=== PATIENT | female | born 1945 ===

== ENCOUNTER 2024-12-05 09:36 | Inpatient (IN) | payer MEDICARE, SELFPAY ==
--- NOTE | ~2024-12-05 | XR_ITS ---
EXAMINATION: XR abdomen/kub 1V DATE: 12/06/2024 15:05 INDICATION: Left ureteral stone. TECHNIQUE: A supine view of the abdomen on 2 radiographs was obtained. COMPARISON: CT abdomen and pelvis 12/04/2024 FINDINGS: There are no dilated loops of bowel. There is a catheter tip in right atrium. There are stanley nges of aortic valve replacement. There is a left internal ureteral stent in expected position. There is a 5 mm stone in left kidney lower pole. There is a 6 mm stone at left ureteropelvic junction. The re are phleboliths in the pelvis. IMPRESSION: 1. Stones in the left kidney and left ureteropelvic junction with left internal ureteral stent in exp ected position. Reviewed, dictated and finalized at location B. ONAL PRODUCTION MANAGER IMPRESSION: 1. Stones in the left kidney and left ureteropelvic junction with left internal ureteral stent in expected position.
--- NOTE | ~2024-12-05 | XR_ITS ---
CHEST RADIOGRAPH CLINICAL HISTORY: SOB, N/V . COMPARISON: 12/07/2024 (less than 24 hours earlier) TECHNIQUE: Single portable view of the chest. FINDINGS Right internal jugular tunneled central venous power port catheter identified with its tip projecting over the proximal right atrium, in good position. Prosthetic valve in the aortic position. The remainder of the cardiomediastinal silhouette is otherwise unremarkable. Blunting of the left costophrenic sulcus persists, consistent with a small left-sided pleural effusio n. The remainder of the lungs are clear. IMPRESSION: Small left-sided pleural effusion without focal infiltrate, unchanged from prior. Reviewed, dictated and finalized at location A. NCE BROKER IMPRESSION: Small left-sided pleural effusion without focal infiltrate, unchanged from kim coombs
--- NOTE | ~2024-12-05 | XR_ITS ---
Supine and upright views of the abdomen Clinical history: 5 mm left UPJ stone Findings: Bowel gas pattern is nonspecific. No evidence for obstruction or free air. Questionable 5 m m stone at the proximal left ureter. Osseous structures are intact. Impression: Questionable 5 mm proximal left ureteral stone. Reviewed, dictated and finalized at [facility] M. OMER SERVICE ADVOCATE Impression: Questionable 5 mm proximal left ureteral stone.
--- NOTE | ~2024-12-05 | XR_ITS ---
CHEST RADIOGRAPH CLINICAL HISTORY: AFib RVR . COMPARISON: None available TECHNIQUE: Single portable view of the chest. FINDINGS Right internal jugular tunneled central venous power port catheter identified with its tip projecting over the proximal right atrium, in good position. Prosthetic valve in the aortic position. The remainder of the cardiomediastinal silhouette is otherwise unremarkable. Blunting of the left costophrenic sulcus is still a small left-sided pleural effusion. The remainder of the lungs are clear. IMPRESSION: Small left-sided pleural effusion without focal infiltrate. Reviewed, dictated and finalized at location A. Y CATTLE FARM MANAGER
--- NOTE | ~2024-12-05 | XR_ITS ---
Portable chest x-ray Comparison: 12/08/2024 Clinical History: CHF Findings: Right-sided Mediport unchanged. Possible minimal effusions. Lungs are otherwise clear. Ca rdiomediastinal silhouette is stable, with aortic valve replacement. Bones and soft tissues are unrem arkable. Impression: Right-sided Mediport. Possible minimal effusions. Cardiomegaly with aortic valve replacement. Reviewed, dictated and finalized at location . GROWER Impression: Right-sided Mediport. Possible minimal effusions. Cardiomegaly with aortic valve replacement.
--- NOTE | ~2024-12-05 | XR_ITS ---
EXAMINATION: XR retrograde pyelo w/stent LT DATE: 12/06/2024 11:45 INDICATION: Cystoscopy and left ureteral stent placement TECHNIQUE: 45 fluoroscopic images of the abdomen and pelvis were obtained during procedure performed by Dr. Root. Radiologist was not present for the imaging or procedure. The amount of fluoroscopy ti me used during this procedure was 0.4 minutes. COMPARISON: 12/06/2024 FINDINGS: Images demonstrate cannulation and retrograde contrast injection into the left ureter opacifying the normal-appearing left renal pelvis and collecting system. Final images demonstrate placement of a lef t intraureteral stent with loops formed in the left renal pelvis and in the bladder. IMPRESSION: 1. Placement of a left intraureteral stent which is in expected position. See procedure note for furt her detail. Reviewed, dictated and finalized at location A. [facility] [employer] IMPRESSION: 1. Placement of a left intraureteral stent which is in expected position. See p rocedure note for further detail.
--- NOTE | ~2024-12-05 | CT_ITS ---
CT angiogram of the Abdomen and Pelvis with lower extremity runoff: Indication: Numbness, pain, absent pulses in the bilateral lower extremities Technique: 2.5 mm axial scans were obtained through the abdomen and pelvis and lower extremities fol lowing intravenous administration of 100 cc of Omnipaque 350. Dose reduction technique was used on th is scan by utilizing automated exposure control and iterative reconstruction technique. The dose-quan th product (DLP) was 1539.31 mGy-cm. COMPARISON: Outside CT images dated 11/09/2024 Findings: Scans through the lung bases demonstrate partially imaged small to possibly moderate pleur al effusions with mild bibasilar atelectatic change. Small pericardial effusion present. There is stable intrahepatic and extrahepatic biliary dilatation, probably related to prior cholecyst ectomy. There is a new wedge-shaped area of hypodensity at the superior spleen, compatible focal sple bailey infarct (coronal image 36 for example). The pancreas, adrenals and right kidney are within normal limits. Left ureteral stent in place. No significant abnormality of the left kidney identified. No l ymphadenopathy. No bowel obstruction or bowel wall thickening. Status post partial right colectomy. Images through the pelvis were performed. Urinary bladder unremarkable. No adnexal mass seen. Trace p elvic ascites present. Stable atherosclerotic calcification of the aorta and iliac arteries. There is complete occlusion of the distal, infrarenal abdominal aorta, which is new since 11/09/2024. Occlusion also involves the pr oximal common iliac arteries bilaterally. There is reconstitution of the bilateral iliac arteries jus t proximal to the iliac bifurcations. Right external iliac, common femoral, superficial femoral, popl iteal artery are patent. Right popliteal trifurcation is unremarkable. The right posterior tibial art ramin is patent along its length. There is probable multifocal high-grade atherosclerotic disease at th e mid to distal anterior tibial and peroneal arteries, which are poorly visualized. Left external po ac, common femoral, superficial femoral, and popliteal arteries are patent, with some mild to moderat e atherosclerotic disease of the left superficial femoral artery. Left popliteal trifurcation is unre markable. Left posterior tibial artery is patent along its length. There is probable moderate to adva nced atherosclerotic disease of the mid to distal anterior tibial and peroneal arteries in the left c winnie, which are poorly imaged. 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 There is reconstitution of the bilateral common il iac arteries just proximal to the bifurcations. Prior imaging/visualization of the mid to distal anterior tibial and peroneal arteries bilaterally, w hich could be due to relatively poor distal flow versus multifocal atherosclerotic disease. Small splenic infarct, new since prior exam. Small to moderate bilateral pleural effusions. Left ureteral stent. Numerous small pericardial effusion. Reviewed, dictated and finalized at location M. 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 There is reconstitution of the bilateral common iliac arteries just proximal to the b ifurcations. Prior imaging/visualization of the mid to distal anterior tibial and peroneal a rteries bilaterally, which could be due to relatively poor distal flow versus m ultifocal atherosclerotic disease. Small splenic infarct, new since prior exam. Small to moderate bilateral pleural effusions. Left ureteral stent. Numerous small pericardial effusion.
[2024-12-05 14:22] VITALS: BMI 30.1
--- NOTE | 2024-12-05 14:51 | P.CONUR_ITS ---
Assessment and Plan Assessment and plan (1) Hydronephrosis concurrent with and due to calculi of kidney and ureter: Code(s): N13.2 - Hydronephrosis with renal and ureteral calculous obstruction <Brie Nolasco APRN - Last Filed: 12/05/24 15:56> Status: Acute <Brie Nolasco APRN - Last Filed: 12/05/24 15:56> Assessment and Plan: 12/04/24 CT AP shows obstructing left 5mm UPJ stone with mild hydronephrosis Renal function stable, Cr 0.64 <Brie Nolasco APRN - Last Filed: 12/05/24 15:56> (2) UTI (urinary tract infection): Code(s): N39.0 - Urinary tract infection, site not specified <Brie hart APRN - Last Filed: 12/05/24 15:56> Status: Acute <Brie Nolasco APRN - Last Filed: 12/05/24 15:56> Assessment and Plan: Present on admission Received single dose of IV ceftriaxone 12/04/24 at OSH 12/04/24 UA 2+ LE, 3+ blood, >100 WBC, 20-30 RBC UTI risk factors include urinary incontinence, obstructing renal stone, diabetes, debility <Brie Nolasco APRN - Last Filed: 12/05/24 15:56> (3) Urinary incontinence: Code(s): R32 - Unspecified urinary incontinence <Brie Nolasco APRN - Last Filed: 12/05/24 15:56> Status: Acute <Brie Nolasco APRN - Last Filed: 12/05/24 15:56> Assessment and Plan: Chronic, possibly due to progressive myasthenia gravis. Patient not interested in further workup. <Brie Nolasco APRN - Last Filed: 12/05/24 15:56> Assessment and Plan: 79yoF transferred from [facility] 12/05/24 for evaluation and management of obstructing left 5mm UPJ stone with associated mild left hydronephrosis, UTI. Leukocytosis downtrending, WBC 15.1 from 17.4. Renal function stable, Cr 0.64. Afebrile, normotensive. Pain partially controlled (transdermal Fentanyl patch noted). Denies previous history of renal stones. She is s/p open right hemicolectomy 2/2 colocolonic intussusception at [facility] 11/15/24. On chronic anticoagulation with hx TAVR 02/2024 and AFIB. - CT from OSH to be scanned into [facility] P[facility] - Obtain KUB in a.m. to reevaluate stone position. - Continue culture-directed abx for suspected UTI. She received a dose of IV ceftriaxone at OSH 12/04/24. - NPO at midnight for cystoscopy/left ureteral stent placement tomorrow in the OR. Patient aware and agreeable. - We reviewed risk of stent irritation to include hematuria, crampy abdominal pain, bladder spasms, infection. Patient aware her stone will not be treated if there is suspicion for active infection. Stone treatment and subsequent stent management to be completed as an outpatient within the next 3 months after her infection has cleared. - Start daily tamsulosin 0.4mg for trial of passage. Encourage oral fluid intake. - Incontinent of urine at baseline. Will be difficult to strain urine. <Brie Nolasco, VEGETABLE WASHER - Last Filed: 12/05/24 15:56> 79yoF transferred from [facility] 12/05/24 for evaluation and management of obstructing left 5mm UPJ stone with associated mild left hydronephrosis, UTI. Leukocytosis downtrending, WBC 15.1 from 17.4. Renal function stable, Cr 0.64. Afebrile, normotensive. Pain partially controlled (transdermal Fentanyl patch noted). Denies previous history of renal stones. She is s/p partial bowel resection 2/2 intussusception at [facility] 11/22/24 - CT from OSH to be scanned into [facility] - Obtain KUB in a.m. to reevaluate stone position. - Continue culture-directed abx for suspected UTI. She received a dose of IV ceftriaxone at OSH 12/04/24. - NPO at midnight for cystoscopy/left ureteral stent placement tomorrow in the OR. Patient aware and agreeable. - We reviewed possible stent irritation to include hematuria, crampy abdominal pain, bladder spasms, infection. Patient aware her stone will not be treated if there is suspicion for active infection. Stone treatment and subsequent stent management to be completed as an outpatient within the next 3 months after her infection has cleared. - Start daily tamsulosin 0.4mg for trial of passage. Encourage oral fluid intake. - Incontinent of urine at baseline. Will be difficult to strain urine. <Angelina Reese MD - Last Filed: 12/05/24 15:58> Urology Consult Note HPI Date Seen: 12/05/24 <Brie Nolasco APRN - Last Filed: 12/05/24 15:56> 12/05/24 <Angelina Reese MD - Last Filed: 12/05/24 15:58> Requesting Physician: Marybeth Delacruz MD <Brie Nolasco APRN - Last Filed: 12/05/24 15:56> Primary Care Provider: UNKNOWN,DOCTOR <Brie Nolasco APRN - Last Filed: 12/05/24 15:56> Consult Narrative Reason for consult: Obstructing left ureteral stone, UTI <Brie Nolasco APRN - Last Filed: 12/05/24 15:56> Narrative: Kallie Calderon is an 79yoF transferred from [facility] 12/05/24 for evaluation and management of obstructing left 5mm UPJ stone with associated mild left hydronephrosis, UTI. She reports bloody urine for the past 3 days with intermittent left flank pain and subjective fever. Denies abdominal pain, nausea, vomiting. Denies previous history of renal stones. Reports chronic urinary incontinence and frequent UTI, AFIB on Eliquis. Nonsmoker. Patient comfortable on exam, feeling cold and tired, otherwise denies complaints 12/04-12/05/24 records from outside hospital reviewed. Leukocytosis downtrending, WBC 15.1 from 17.4. Renal function stable, Cr 0.64. Afebrile, normotensive. Pain partially controlled (transdermal Fentanyl patch noted for hx chronic back pain). Recently hospitalized at [facility] 11/09/24 - 11/20/24. EPIC records reviewed: She is s/p open right hemicolectomy 2/2 colocolonic intussusception at [facility] 11/15/24. On exam, mid-abdominal surgical incision intact, well-approximated, no s/sx infection. Hx TAVR 02/2024 for severe aortic stenosis. <Brie Nolasco APRN - Last Filed: 12/05/24 15:56> Review of Systems Constitutional: Constitutional: Reports chills, Reports fatigue and Reports lethargy <Brie Nolasco APRN - Last Filed: 12/05/24 15:56> Eyes: Eyes: Reports no additional eye complaints <Brie Nolasco APRN - Last Filed: 12/05/24 15:56> ENT: Reports Normal hearing present <Brie Nolasco APRN - Last Filed: 12/05/24 15:56> Cardiovascular: Cardiovascular: Reports no additional cardiovascular complaints <Brie Nolasco APRN - Last Filed: 12/05/24 15:56> Respiratory: Respiratory: Reports no additional respiratory complaints <Brie Nolasco APRN - Last Filed: 12/05/24 15:56> Gastrointestinal: Gastrointestinal: Denies abdominal pain, Denies nausea and Denies vomiting <Brie Nolasco APRN - Last Filed: 12/05/24 15:56> Comments: s/p partial bowel resection 11/22/2024 <Brie Nolasco APRN - Last Filed: 12/05/24 15:56> Genitourinary: Genitourinary: Reports hematuria (x3 days), Reports flank pain (left) and Reports urinary incontinence (chronic, wears incontinence briefs ) <Brie Nolasco APRN - Last Filed: 12/05/24 15:56> Musculoskeletal: Musculoskeletal: Reports no additional musculoskeletal complaints <Brie Nolasco APRN - Last Filed: 12/05/24 15:56> Neurologic: Reports system reviewed and no additional complaints, except as documented <Brie Nolasco APRN - Last Filed: 12/05/24 15:56> Psychiatric: Psychiatric: Reports no additional psychiatric complaints <Brie Nolasco APRN - Last Filed: 12/05/24 15:56> [facility] Family History Family History: Family History (Updated 12/05/24 @ 14:56 by Brie Nolasco APRN) Other Kidney stones Malignant neoplasm of prostate <Brie Nolasco APRN - Last Filed: 12/05/24 15:56> Social History Social History: Social History (Updated 12/05/24 @ 14:57 by Brie Nolasco APRN) Smoking status: Never smoker Second hand tobacco smoke exposure: Yes Alcohol intake: never Substance use: never Do You Feel Safe in your Home?: Yes Lack of Transportation: No Lack of Food: Never True Current Housing: I Have Housing Concerned About Future Housing: No Difficulty Paying Gas/Electric Bills: No Difficulty Paying for Meds: No Currently Unemployed: No Education: High School Diploma/GED Difficulty w/ Childcare or Family Care: No Spiritual care concerns: No <Brie Nolasco APRN - Last Filed: 12/05/24 15:56> Meds Home Medications and Allergies Home medications: Home Medications ?Medication ?Instructions ?Recorded ?Confirmed ?Type apixaban 5 mg tablet (Eliquis) 5 mg PO BID 12/05/24 12/05/24 History cyclobenzaprine 10 mg tablet 10 mg PO Q8H PRN muscle spasm 12/05/24 12/05/24 History diltiazem HCl 240 mg 480 mg PO DAILY 12/05/24 12/05/24 History capsule,extended release 24 hr diltiazem HCl 300 mg mg PO 12/05/24 History capsule,extended release 24 hr hydrocodone 10 mg-acetaminophen 1 tablet PO Q8H PRN pain 12/05/24 12/05/24 History 325 mg tablet <Brie Nolasco APRN - Last Filed: 12/05/24 15:56> Exam Const: General: comfortable and no acute distress <Brie Nolasco APRN - Last Filed: 12/05/24 15:56> HENMT: Face/Nose/Sinus: Normal nares present <Brie Nolasco APRN - Last Filed: 12/05/24 15:56> Eyes: General: appearance normal, both eyes and all related structures <Brie Nolasco APRN - Last Filed: 12/05/24 15:56> Resp: Effort & Inspection: normal respiratory effort <Brie Nolasco APRN - Last Filed: 12/05/24 15:56> GI: Other: Obese <Brie Nolasco APRN - Last Filed: 12/05/24 15:56> : Other: Incontinence brief <Brie Nolasco APRN - Last Filed: 12/05/24 15:56> Skin: Wounds: wounds noted (Mid-abdominal surgical incision well approximated, pink granulation tissue) <Brie Nolasco APRN - Last Filed: 12/05/24 15:56> Neuro: Speech: normal speech <Brie Nolasco APRN - Last Filed: 12/05/24 15:56> Psych: Speech and movement: Normal speech and movement present <Brie Nolasco APRN - Last Filed: 12/05/24 15:56> Affect: normal affect <Brie Nolasco APRN - Last Filed: 12/05/24 15:56> Attestation Supervising Provider Attestation Patient seen and examined independently. Agree with nurse practitioner note. Plan cystoscopy and left ureteral stent insertion tomorrow <Angelina Reese MD - Last Filed: 12/05/24 15:58>
--- NOTE | 2024-12-05 14:54 | P.HP_ITS ---
H&P: HPI History of Present Illness Date/Time: 12/05/24 14:54 Chief Complaint: Flank Pain Narrative: 79 y/o F presents here with dysuria and hematuria with PMH of anemia, CKD, osteoarthritis, atrial fibrillation, myasthenia gravis, COPD, hypertension, and hyperlipidemia. The patient presents here as a transfer from [facility] for further evaluation of dysuria. She originally presented there on 12/04. Patient reports that she began experiencing dysuria and hematuria since Aug. Reports she finally sought care after she was farther out post-op and felt too much time had passed. No associated fever, chills, body aches, abdominal pain, or constipation. Patient does have a hx of a recent open right hemicolectomy secondary to colocolonic intussusception, performed at [facility] on 11/15/24. Patient has been having intermittent diarrhea for some time, reports no change in the frequency, color, or consistency. She denies hx of kidney stones. Patient also reports left flank pain since Aug. Pain has been intermittent and would worsen with laying down/sitting up. Patient has taken Vicodin and has a fentanyl patch, but only had partially relief. Initial VS at presentation: 36.2? C, RR 18, HR 94, 141/65, and 96% on room air. ED workup showed: WBC 15.1, hemoglobin 8.1 (previously 9.1 on 12/04/2024), glucose 126, creatinine 0.64 and GFR 49, and lactic 5.5. And UA suggestive of UTI. Urine culture with preliminary results of Gram-negative bacilli. CT of the chest/abdomen/pelvis showed mild thickening of the transverse colon with mild edema to the mesentery adjacent to the colon near the anastomosis (may be postoperative given recent surgery) without abscess, 5 mm stone in the left ureteropelvic junction with mild left hydronephrosis, and mild free fluid in the pelvis. Review of Systems Review of Systems: All systems reviewed & are unremarkable except as noted in HPI and below PMFSH Past Medical History Medical History (Updated 12/05/24 @ 17:26 by Savanna Simons, TAMIR) Anemia CKD (chronic kidney disease) Vitamin B deficiency Osteoarthritis Atrial fibrillation Myasthenia gravis COPD (chronic obstructive pulmonary disease) Hypertension Hyperlipidemia Surgical History Surgical History History of breast lump/mass excision History of cholecystectomy H/O aortic valve replacement Family History Family History Other Kidney stones Malignant neoplasm of prostate Social History Social History Smoking status: Never smoker Second hand tobacco smoke exposure: Yes Alcohol intake: never Substance use: never Do You Feel Safe in your Home?: Yes Lack of Transportation: No Lack of Food: Never True Current Housing: I Have Housing Concerned About Future Housing: No Difficulty Paying Gas/Electric Bills: No Difficulty Paying for Meds: No Currently Unemployed: No Education: High School Diploma/GED Difficulty w/ Childcare or Family Care: No Spiritual care concerns: No Meds Home Medications and Allergies Home Medications ?Medication ?Instructions ?Recorded ?Confirmed ?Type apixaban 5 mg tablet (Eliquis) 5 mg PO BID 12/05/24 12/05/24 History cyclobenzaprine 10 mg tablet 10 mg PO Q8H PRN muscle spasm 12/05/24 12/05/24 History diltiazem HCl 240 mg 480 mg PO DAILY 12/05/24 12/05/24 History capsule,extended release 24 hr fentanyl 50 mcg/hr transdermal 1 patch transdermal Q72H pain 12/05/24 12/05/24 History patch hydrocodone 10 mg-acetaminophen 1 tablet PO Q8H PRN pain 12/05/24 12/05/24 History 325 mg tablet losartan 25 mg tablet 25 mg PO DAILY bp 12/05/24 12/05/24 History omeprazole 20 mg capsule,delayed 20 mg PO BID 12/05/24 12/05/24 History release ondansetron 4 mg disintegrating 4 mg translingual Q6H PRN nausea 12/05/24 12/05/24 History tablet and vomiting potassium chloride 10 mEq 10 meq PO BID 12/05/24 12/05/24 History capsule,extended release probenecid 500 mg tablet 500 mg PO Q12H 12/05/24 12/05/24 History pyridostigmine bromide 60 mg tablet 60 mg PO TID 12/05/24 12/05/24 History rosuvastatin 40 mg tablet 40 mg PO DAILY 12/05/24 12/05/24 History spironolactone 25 mg tablet 25 mg PO Q12H 12/05/24 12/05/24 History Allergies Allergy/AdvReac Type Severity Reaction Status Date / Time fish oil Allergy Unknown Verified 12/05/24 19:22 mushroom Allergy Unknown Verified 12/05/24 19:22 penicillin V Allergy Unknown Verified 12/05/24 19:22 famciclovir AdvReac Unknown Verified 12/05/24 19:22 ketorolac AdvReac Unknown Verified 12/05/24 19:22 oxybutynin AdvReac Unknown Verified 12/05/24 19:22 Sulfa (Sulfonamide AdvReac Unknown Verified 12/05/24 19:22 Antibiotics) tetracycline AdvReac Unknown Verified 12/05/24 19:22 topiramate AdvReac Unknown Verified 12/05/24 19:22 sea food Allergy Unknown Uncoded 12/05/24 19:22 Exam Const: General: comfortable and no acute distress Other: , female, mildly ill-appearing HENMT: Face/Nose/Sinus: Normal nares present Mouth: Yes moist mucous membranes Eyes: General: appearance normal, both eyes and all related structures Sclera: sclerae normal Pupils: Equal, round and reactive pupils present EOM: EOMs intact bilaterally Resp: Effort & Inspection: normal respiratory effort Auscultation: clear to auscultation bilaterally Cardio: Rate: regular rate Rhythm: abnormal rhythm Other: S1-S2 present without murmur, rub, ectopy GI: Other: post-operative incision near umbilicus and distally is intact and free of erythema/drainage. diffuse tenderness with palpation. Skin: General skin exam: normal color and no rashes or lesions noted Other: Postoperative incision to abdomen, CDI. Neuro: Speech: normal speech Motor exam (neuro): 5/5 motor strength present throughout Sensory Exam: normal sensation Other: A&O x4 Extrem: General: normal to inspection Psych: Mental Status: mental status grossly normal Affect: normal affect Other: Good insight and judgment, pleasant Assessment and Plan Assessment and plan (1) Sepsis: Qualifiers: Sepsis acute organ dysfunction status: without acute organ dysfunction Sepsis type: sepsis due to unspecified organism Qualified Code(s): A41.9 - Sepsis, unspecified organism Code(s): A41.9 - Sepsis, unspecified organism Status: Acute Assessment and Plan: - meets SIRS criteria: HR, WBC - lactic acid: 5.5 -> 1.5 - repeat lactic, add procalcitonin - given 2 L bolus at outside hospital - suspected source: UTI - started on ceftriaxone on 12/04 - blood cultures drawn on 12/04 at outside hospital - UA suggestive of UTI (2) UTI (urinary tract infection): Qualifiers: Hematuria presence: with hematuria Urinary tract infection type: acute cystitis Qualified Code(s): N30.01 - Acute cystitis with hematuria Code(s): N39.0 - Urinary tract infection, site not specified Status: Acute Assessment and Plan: - UA: Small bilirubin, trace ketones, small leukocytes, TNTC WBC, 20-30 RBC, 1+ bacteria, 0-2 epithelial cells. - UC pending, preliminary results Gram-negative bacilli - no previous micro available for review - started on Ceftriaxone on 12/05 - Eliquis for held at outside hospital due to hematuria, will add SCDs and continue told (3) Hydronephrosis concurrent with and due to calculi of kidney and ureter: Code(s): N13.2 - Hydronephrosis with renal and ureteral calculous obstruction Status: Acute Assessment and Plan: - CT chest/abd/pelvis: 1. Mild thickening of the transverse colon with mild edema in the mesentery adjacent to the colon near the anastomosis. It may be postoperative given recent surgery. No abscess. 2. A 5 mm stone in the left ureteropelvic junction with mild left hydronephrosis 3. Mild free fluid in the pelvis. - Urology consulted, Gaurav DATA REVIEW SPECIALIST. Provided the following recs: NPO at midnight for cystoscopy and left ureteral stent placement tomorrow Continue culture directed ABX, awaiting final result of UC Start Flomax 0.4 mg daily (4) CKD (chronic kidney disease): Qualifiers: Chronic kidney disease stage: unspecified stage Qualified Code(s): N18.9 - Chronic kidney disease, unspecified Code(s): N18.9 - Chronic kidney disease, unspecified Status: Acute Assessment and Plan: - creatinine 0.64 and GFR 49 - trend renal function - trend electrolytes, correct as needed (5) Hypertension: Qualifiers: Hypertension type: primary hypertension Qualified Code(s): I10 - Essential (primary) hypertension Code(s): I10 - Essential (primary) hypertension Status: Acute Assessment and Plan: - chronic, currently 154/71 - continue home medications: losartan 25 mg daily, spironolactone 25 mg b.i.d. - monitor Plan Diet: Diabetic GI Prophylaxis: Not currently indicated DVT Prophylaxis: SCDs, Eliquis on hold Lines: Peripheral Code Status: full code Quality VTE Prophylaxis VTE prophylaxis: mechanical ordered Hospitalist MIPS Advance Care Plan I have confirmed that the patient's Advanced Care Plan is present, code status is documented, or surrogate decision maker is listed in patient medical record.: Yes Medication Reconciliation I have utilized all available resources to obtain, update and review the patients current medications (includes all prescriptions, OTC, herbals, cannabis, and nutritional supplements).: Yes
[2024-12-05 15:04] VITALS: BP 154/71; PULSE 71; RESP 17; TEMP 36.2; O2SAT 98
--- NOTE | 2024-12-05 16:13 | PC.NURSE ---
This patient, Kallie Calderon, was admitted to [facility] Surg Room 329-01. Patient/family oriented to hospital policies and general routines including ID bracelet, bed and alarms, visiting hours, pain management, procedures, bathroom and other care routines, personal items, smoking policy, room service/diet, and visiting hours. Information on how to activate the Rapid Response Team has been discussed. Patient/Family are encouraged to report perceived risks to care and to ask questions if they do not understand what they are told or what they should do.
[2024-12-05 19:49] LABS: Hematocrit 27.1 % (37.0-47.0); Hemoglobin 8.5 g/dL (12.0-15.0); Mean Corpuscular HGB Conc 31.4 g/dl (32-36); Mean Corpuscular Hemoglobin 28.5 pg (26-34); Mean Corpuscular Volume 90.9 fl (80-100); Mean Platelet Volume 9.9 fl (7.4-10.4); Platelet Count Result 258 k/mm3 (150-375); Red Blood Count 2.98 M/mm3 (4.2-5.4); Red Cell Distribution Width 14.9 % (11.5-14.5); White Blood Count 18.3 K/mm3 (4.5-10.0)
[2024-12-05 20:02] LABS: Anion Gap 0 mmol/L (4-12); Blood Urea Nitrogen 10 mg/dL (7-17); Carbon Dioxide 28 mmol/L (22-30); Chloride 102 mmol/L (98-107); Estimated CRCL calculation 54 ml/min; Estimated Glomerular Filt Rate > 60; Glucose 120 mg/dL (65-110); Lactic Acid Reflex 1.5 mmol/L (0.7-2.0); Potassium 4.2 mmol/L (3.4-5.0); Sodium 130 mmol/L (137-145)
[2024-12-05 20:29] VITALS: BP 126/77; PULSE 74; RESP 16; TEMP 37.7; O2SAT 97
[2024-12-05 20:38] LABS: Procalcitonin 0.2 ng/mL
[2024-12-05] MEDS: HYDROcodone/acetaminophen (*CRX) 10-325 MG TABLET 1 TAB PO (20:43)
[2024-12-05] MEDS: PANTOPRAZOLE 40 MG TABLET PO (20:46)
[2024-12-05] MEDS: SPIRONOLACTONE 25 MG TABLET PO (20:55)
[2024-12-06] VITALS (8 sets, daily range): BP systolic 97–167; BP diastolic 47–98; PULSE 72–102; RESP 16–22; TEMP 36.3–37.2; O2SAT 93–100; BMI 30.1
[2024-12-06] MEDS: SPIRONOLACTONE 25 MG TABLET PO ×2 (05:12→17:54)
[2024-12-06 05:43] LABS: Basophils Absolute Auto 0.1 K/mm3 (0.0-0.1); Basophils Percent Auto 0.5 % (0.2-1.2); Eosinophils Absolute Auto 0.1 K/mm3 (0-0.3); Eosinophils Percent Auto 0.3 % (0-4.4); Hematocrit 27.7 % (37.0-47.0); Hemoglobin 8.8 g/dL (12.0-15.0); Immature Granulocyte Absolute 0.22 K/mm3 (0.00-0.031); Immature Granulocyte Percent A 1.1 % (0-0.5); Lymphocytes Absolute Auto 1.84 K/mm3 (0.9-3.2); Lymphocytes Percent Auto 9.4 % (18.3-44.2); Mean Corpuscular HGB Conc 31.8 g/dl (32-36); Mean Corpuscular Hemoglobin 28.9 pg (26-34); Mean Corpuscular Volume 90.8 fl (80-100); Mean Platelet Volume 9.7 fl (7.4-10.4); Monocytes Absolute Auto 1.5 K/mm3 (0.1-0.6); Monocytes Percent Auto 7.5 % (2.6-8.5); Neutrophils Absolute Auto 15.9 K/mm3 (1.3-6.7); Neutrophils Percent Auto 81.2 % (45.5-73.1); Platelet Count Result 269 k/mm3 (150-375); Red Blood Count 3.05 M/mm3 (4.2-5.4); Red Cell Distribution Width 14.9 % (11.5-14.5); White Blood Count 19.6 K/mm3 (4.5-10.0)
[2024-12-06 05:44] LABS: Potassium 3.9 mmol/L (3.4-5.0)
[2024-12-06 05:48] LABS: Alanine Aminotransferase 10 U/L (6-35); Albumin Level 2.1 g/dL (3.5-5.1); Alkaline Phosphatase 151 U/L (38-126); Anion Gap 1 mmol/L (4-12); Aspartate Amino Transferase 23 U/L (14-36); Bilirubin,Total 0.5 mg/dL (0.2-1.3); Blood Urea Nitrogen 10 mg/dL (7-17); Calcium 7.8 mg/dL (8.4-10.2); Carbon Dioxide 28 mmol/L (22-30); Chloride 101 mmol/L (98-107); Estimated CRCL calculation 62 ml/min; Estimated Glomerular Filt Rate > 60; Glucose 131 mg/dL (65-110); Sodium 130 mmol/L (137-145)
--- NOTE | 2024-12-06 06:25 | WPDHPUPDATE1 ---
History and Physical Update Update Date/Time: 12/06/24 06:25 History and Physical has been reviewed, including an updated exam of the patient. There are NO changes in the patient's condition. Risks, benefits, and alternatives have been discussed and questions answered. Patient agrees to proceed with procedure.
[2024-12-06] MEDS: dilTIAZem HCL CD 240 MG CAP.24HR 480 MG PO (09:42)
[2024-12-06] MEDS: POTASSIUM CHLORIDE 10 MEQ ER TABLET PO ×2 (09:43→17:54)
--- NOTE | 2024-12-06 10:40 | SUR.PREOP ---
Per Dr. Lance, anesthesiologist, morris to use accessed port for IVF. If additional access is needed, it will be obtained in the OR.
--- NOTE | 2024-12-06 11:10 | P.PNAN_ITS ---
Anes - Initial Pre Proc Eval Procedure: Operation Date: 12/06/24 14:30 Proposed Procedures p Cystoscopy, Left Stent Placement(Left) - Vern Root MD Date/Time: 12/06/24 11:10 Surgeon: Dk Pre Op Diagnosis: Kidney Stone Patient Data Age: 79 Gender: F Height: 1.6 m Weight: 77.1 kg Last Vital Signs Temp 37.2 C 12/06/24 10:20 Pulse 99 12/06/24 10:20 Resp 18 12/06/24 10:20 BP 167/55 H 12/06/24 10:20 Pulse Ox 97 12/06/24 10:20 O2 Del Method Room Air 12/06/24 10:20 Allergies Allergy/AdvReac Type Severity Reaction Status Date / Time fish oil Allergy Unknown Verified 12/06/24 10:31 mushroom Allergy Unknown Verified 12/06/24 10:31 penicillin V Allergy Unknown Verified 12/06/24 10:31 famciclovir AdvReac Unknown Verified 12/06/24 10:31 ketorolac AdvReac Unknown Verified 12/06/24 10:31 oxybutynin AdvReac Unknown Verified 12/06/24 10:31 Sulfa (Sulfonamide AdvReac Unknown Verified 12/06/24 10:31 Antibiotics) tetracycline AdvReac Unknown Verified 12/06/24 10:31 topiramate AdvReac Unknown Verified 12/06/24 10:31 sea food Allergy Unknown Uncoded 12/06/24 10:31 Home Medications ?Medication ?Instructions ?Recorded ?Confirmed ?Type apixaban 5 mg tablet (Eliquis) 5 mg PO BID 12/05/24 12/05/24 History cyclobenzaprine 10 mg tablet 10 mg PO Q8H PRN muscle spasm 12/05/24 12/05/24 History diltiazem HCl 240 mg 480 mg PO DAILY 12/05/24 12/05/24 History capsule,extended release 24 hr fentanyl 50 mcg/hr transdermal 1 patch transdermal Q72H pain 12/05/24 12/05/24 History patch hydrocodone 10 mg-acetaminophen 1 tablet PO Q8H PRN pain 12/05/24 12/05/24 History 325 mg tablet losartan 25 mg tablet 25 mg PO DAILY bp 12/05/24 12/05/24 History omeprazole 20 mg capsule,delayed 20 mg PO BID 12/05/24 12/05/24 History release ondansetron 4 mg disintegrating 4 mg translingual Q6H PRN nausea 12/05/24 12/05/24 History tablet and vomiting potassium chloride 10 mEq 10 meq PO BID 12/05/24 12/05/24 History capsule,extended release probenecid 500 mg tablet 500 mg PO Q12H 12/05/24 12/05/24 History pyridostigmine bromide 60 mg tablet 60 mg PO TID 12/05/24 12/05/24 History rosuvastatin 40 mg tablet 40 mg PO DAILY 12/05/24 12/05/24 History spironolactone 25 mg tablet 25 mg PO Q12H 12/05/24 12/05/24 History Laboratory Tests 12/05/24 12/06/24 12/06/24 19:41 05:31 05:31 WBC 18.3 H K/mm3 19.6 H K/mm3 (4.5-10.0) (4.5-10.0) RBC 2.98 L M/mm3 3.05 L M/mm3 (4.2-5.4) (4.2-5.4) Hgb 8.5 L g/dL 8.8 L g/dL (12.0-15.0) (12.0-15.0) Hct 27.1 L % 27.7 L % (37.0-47.0) (37.0-47.0) MCV 90.9 fl 90.8 fl (80-100) (80-100) MCH 28.5 pg 28.9 pg (26-34) (26-34) MCHC 31.4 L g/dl 31.8 L g/dl (32-36) (32-36) RDW 14.9 H % 14.9 H % (11.5-14.5) (11.5-14.5) Plt Count 258 k/mm3 269 k/mm3 (150-375) (150-375) MPV 9.9 fl 9.7 fl (7.4-10.4) (7.4-10.4) Immature Gran % (Auto) 1.1 H % (0-0.5) Neut % (Auto) 81.2 H % (45.5-73.1) Lymph % (Auto) 9.4 L % (18.3-44.2) [place] % (Auto) 7.5 % (2.6-8.5) Eos % (Auto) 0.3 % (0-4.4) Baso % (Auto) 0.5 % (0.2-1.2) Lymph # (Auto) 1.84 K/mm3 (0.9-3.2) [place] # (Auto) 1.5 H K/mm3 (0.1-0.6) Eos # (Auto) 0.1 K/mm3 (0-0.3) Baso # (Auto) 0.1 K/mm3 (0.0-0.1) Abs Immat Gran (auto) 0.22 H K/mm3 (0.00-0.031) Absolute Neuts (auto) 15.9 H K/mm3 (1.3-6.7) Absolute Nucleated RBC 0.000 K/mm3 (0.0-0.012) Nucleated RBC % 0.0 % (0.0-0.2) Sodium 130 L mmol/L 130 L mmol/L (137-145) (137-145) Potassium 4.2 mmol/L 4.0 mmol/L 3.9 mmol/L (3.4-5.0) (3.4-5.0) (3.4-5.0) Chloride 102 mmol/L 101 mmol/L (98-107) (98-107) Carbon Dioxide 28 mmol/L 28 mmol/L (22-30) (22-30) Anion Gap 0 L mmol/L 1 L mmol/L (4-12) (4-12) BUN 10 mg/dL 10 mg/dL (7-17) (7-17) Creatinine 0.69 L mg/dL 0.59 L mg/dL (0.7-1.0) (0.7-1.0) Estim Creat Clear Calc 54 ml/min 62 ml/min Estimated GFR > 60 > 60 (59 - ) (59 - ) Glucose 120 H mg/dL 131 H mg/dL (65-110) (65-110) Lactic Acid 1.5 mmol/L (0.7-2.0) Calcium 8.0 L mg/dL 7.8 L mg/dL (8.4-10.2) (8.4-10.2) Total Bilirubin 0.5 mg/dL (0.2-1.3) AST 23 U/L (14-36) ALT 10 U/L (6-35) Alkaline Phosphatase 151 H U/L (38-126) Total Protein 5.0 L g/dL (6.3-8.2) Albumin 2.1 L g/dL (3.5-5.1) Procalcitonin 0.2 ng/mL Patient hx anesthesia problems: none Family hx anesthesia problems: none Results Review: All pre-operative results and documents have been reviewed as part of the pre-operative evaluation. [facility] Past Medical History Medical History (Updated 12/05/24 @ 17:26 by Savanna Simons APRN) Anemia CKD (chronic kidney disease) Vitamin B deficiency Osteoarthritis Atrial fibrillation Myasthenia gravis COPD (chronic obstructive pulmonary disease) Hypertension Hyperlipidemia Surgical History Surgical History History of breast lump/mass excision History of cholecystectomy H/O aortic valve replacement Family History Family History Other Kidney stones Malignant neoplasm of prostate Social History Social History Smoking status: Never smoker Second hand tobacco smoke exposure: Yes Alcohol intake: never Substance use: never Do You Feel Safe in your Home?: Yes Lack of Transportation: No Lack of Food: Never True Current Housing: I Have Housing Concerned About Future Housing: No Difficulty Paying Gas/Electric Bills: No Difficulty Paying for Meds: No Currently Unemployed: No Education: High School Diploma/GED Difficulty w/ Childcare or Family Care: No Spiritual care concerns: No Anes - Eval Final PreProcedure Day of Procedure 12/06/24 11:10 Patient weight: obese Heart: regular rate and rhythm Lungs: clear to auscultation Airway: Mallampati scale class II Neurological: alert and oriented Last oral intake: >/= 8 hours ASA classification: III Emergent: no Anesthetic plan: proceed Anesthesia type and monitoring: general GIVS and standard monitoring Results Review: All pre-operative results and documents have been reviewed as part of the pre- operative evaluation. Informed Consent: The patient's anesthetic plan and its attendant risks and benefits were discussed with the patient/family/POA. Questions were solicited and answers provided to the satisfaction of the patient/family/POA.
--- NOTE | 2024-12-06 11:50 | W.PM.PROC2 ---
Procedure Note - Detailed Date of Procedure 12/06/24 Pre-op Diagnosis Left ureteral stone, UTI Post-op Diagnosis Same Procedure Performed Cystoscopy, left retrograde pyelography, left ureteral stent placement Surgeon Vern Root MD Anesthesia MAC Description of Procedure The patient was brought to the operative suite where she was prepped and draped in a routine sterile fashion while in the dorsal lithotomy position. A 19 F rigid cystoscope was placed in her bladder and the bladder was circumferentially inspected. The bladder neck and urethra were endoscopically normal. The bladder mucosa was without hyperemia. There was no intravesical foreign body or neoplasm. There was a single orthotopic ureteral orifice bilaterally. I advanced .035 glidewire into the left renal pelvis under fluoroscopy. a retrograde pyelogram was obtained on the left over a Sharon catheter to ensure appropriate placement of her ureteral stent. A 4.8F variable length ureteral stent was positioned with the proximal coil in the renal pelvis and the distal coil in the bladder. Scopes and wires were removed after emptying the patient's bladder. Drains Yes Packing No Pathology None sent Complications No immediate complications
[2024-12-06] MEDS: MORPHINE SULFATE (*CRX) 2 MG/ML INJ IV PUSH (14:24)
[2024-12-06] MEDS: TAMSULOSIN HCL 0.4 MG CAPSULE PO (14:25)
[2024-12-06] MEDS: ROSUVASTATIN 20 MG TABLET 40 MG PO (14:26)
[2024-12-06] MEDS: LOSARTAN POTASSIUM 25 MG TABLET PO ×2 (14:26→17:55)
[2024-12-06] MEDS: pyRIDostigmine bromide 60 MG TABLET PO ×3 (14:26→17:54)
[2024-12-06] MEDS: CENTRAL LINE FLUSH 10 ML IV PUSH ×2 (14:26→20:38)
--- NOTE | 2024-12-06 16:09 | PM.IMPN ---
Progress Note: A&P Assessment and Plan (1) Sepsis: Qualifiers: Sepsis type: sepsis due to unspecified organism Sepsis acute organ dysfunction status: without acute organ dysfunction Qualified Code(s): A41.9 - Sepsis, unspecified organism Code(s): A41.9 - Sepsis, unspecified organism Status: Acute Assessment and Plan: - meets SIRS criteria on admission: HR, WBC, Lactic acidosis. - suspected source: UTI - lactic acid: 5.5 -> 1.5 - repeat lactic wnl, procalcitonin 0.2 - given 2 L bolus at outside hospital - blood cultures drawn on 12/04 at outside hospital - UA suggestive of UTI - started on ceftriaxone on 12/04. - Follow cultures as we continue with abx. (2) UTI (urinary tract infection): Qualifiers: Urinary tract infection type: acute cystitis Hematuria presence: with hematuria Qualified Code(s): N30.01 - Acute cystitis with hematuria Code(s): N39.0 - Urinary tract infection, site not specified Status: Acute Assessment and Plan: - UA: Small bilirubin, trace ketones, small leukocytes, TNTC WBC, 20-30 RBC, 1+ bacteria, 0-2 epithelial cells. - UC pending, preliminary results Gram-negative bacilli - no previous micro available for review - started on Ceftriaxone on 12/05 - Eliquis for held at outside hospital due to hematuria, - Ureteral stent placed and Eliquis restarted. (3) Hydronephrosis concurrent with and due to calculi of kidney and ureter: Code(s): N13.2 - Hydronephrosis with renal and ureteral calculous obstruction Status: Acute Assessment and Plan: - CT chest/abd/pelvis: 1. Mild thickening of the transverse colon with mild edema in the mesentery adjacent to the colon near the anastomosis. It may be postoperative given recent surgery. No abscess. 2. A 5 mm stone in the left ureteropelvic junction with mild left hydronephrosis 3. Mild free fluid in the pelvis. - Urology consulted; - s/p Cystoscopy, left retrograde pyelography, left ureteral stent placement. - Started on Flomax 0.4 mg daily. - Further mgt per urologist. (4) CKD (chronic kidney disease): Qualifiers: Chronic kidney disease stage: unspecified stage Qualified Code(s): N18.9 - Chronic kidney disease, unspecified Code(s): N18.9 - Chronic kidney disease, unspecified Status: Acute Assessment and Plan: - Possibly affected by hydronephrosis. - Improving with IVF hydration. - Continue IVF as we monitor closely. - Avoid nephrotoxins. (5) Hypertension: Qualifiers: Hypertension type: primary hypertension Qualified Code(s): I10 - Essential (primary) hypertension Code(s): I10 - Essential (primary) hypertension Status: Acute Assessment and Plan: - chronic, - currently trending normal high. - losartan dose increased 25>>50 mg daily, continue spironolactone 25 mg b.i.d. - monitor and adjust meds as needed. Plan Diet: Heart Healthy GI Prophylaxis: Not currently indicated DVT Prophylaxis: SCDs, Eliquis Lines: Peripheral Code Status: full code Time Spent With Patient Time with patient: 15 - 25 minutes Subjective Date/time seen: 12/06/24 15:10 Patient states she feels alright and has no complaints or distress currently. Interval history: Patient calm on bedrest and looks to be in no acute distress. Review of Systems Review of Systems: All systems reviewed & are unremarkable except as noted in HPI and below Exam Narrative: General: Well appearing, no acute distress. HEENT: Atraumatic, PERRL, EOMI, moist mucosa. NECK: Supple. Lungs: Clear bilaterally. Heart: RRR, no murmurs. Abdomen: Soft, non-tender, non-distended, +ve BS X4 Quadrants. Extremities: Acyanotic, no edema. Skin: Warm and dry. No lesions noted. Neuro: Well oriented. CN II-XII grossly intact. Psych: Pleasant and co-operative. Objective Data Vital Signs Vital Signs: Vital Signs - 24 hr 12/05/24 20:00 12/05/24 20:29 12/06/24 05:17 Temperature 99.8 F H 97.8 F Pulse Rate 74 72 Respiratory Rate 16 18 Blood Pressure 126/77 133/98 H Pulse Oximetry 97 100 Oxygen Delivery Room Air Oxygen Flow Rate 12/06/24 10:20 12/06/24 11:46 12/06/24 12:00 Temperature 98.9 F 97.4 F L Pulse Rate 99 102 H 94 Respiratory Rate 18 22 H 17 Blood Pressure 167/55 H 97/75 L 141/68 H Pulse Oximetry 97 99 99 Oxygen Delivery Room Air Simple Face Mask Simple Face Mask Oxygen Flow Rate 10 10 12/06/24 12:15 12/06/24 12:30 12/06/24 13:52 Temperature 97.8 F Pulse Rate 91 95 77 Respiratory Rate 20 19 18 Blood Pressure 161/64 H 156/62 H 165/78 H Pulse Oximetry 96 93 95 Oxygen Delivery Room Air Room Air Oxygen Flow Rate Intake/Output Intake/Output: Intake & Output 12/03/24 12/04/24 12/05/24 12/06/24 23:59 23:59 23:59 23:59 Intake Total 740 550 Balance 740 550 Meds/Results Medications: Active Medications Generic Name Dose Route Start Last Admin Trade Name Freq PRN Reason Stop Dose Admin Acetaminophen 650 mg 12/05/24 14:50 Acetaminophen 325 Mg Tablet PO Q4H PRN Mild Pain (1-3) or Fever Hydrocodone Bitart/Acetaminophen 1 tab 12/05/24 14:52 12/05/24 20:43 Hydrocodone/Acetaminophen (*Crx) 10-325 Mg Tablet PO 1 tab Q8H PRN Administration Pain Rated 4-6 Bisacodyl 5 mg 12/05/24 14:50 Bisacodyl 5 Mg Tablet Ec PO DAILY PRN Constipation Cyclobenzaprine HCl 10 mg 12/05/24 14:52 Cyclobenzaprine Hcl 10 Mg Tablet PO Q8H PRN muscle spasm Diltiazem HCl 480 mg 12/06/24 09:00 12/06/24 09:42 Diltiazem Hcl Cd 240 Mg Cap.24hr PO 480 mg DAILY DEANDRA Administration Fentanyl 50 mcg 12/05/24 09:00 Fentanyl (*Crx) 50 Mcg Patch TRANSDERM Q72H [facility] Heparin Sodium (Beef Lung) 50 units 12/06/24 09:00 12/06/24 14:26 Heparin Flush 50 Units/5 Ml Syringe IV PUSH 50 units QAM [facility] Administration Heparin Sodium (Beef Lung) 50 units 12/06/24 02:44 Heparin Flush 50 Units/5 Ml Syringe IV PUSH PRN PRN after intermittent infusion Heparin Sodium (Beef Lung) 50 units 12/06/24 02:44 Heparin Flush 50 Units/5 Ml Syringe IV PUSH PRN PRN after blood draws Heparin Sodium (Porcine) 500 units 12/06/24 02:44 Heparin Sodium Lock Flush 500 Units/5 Ml Syringe IV PUSH PRN PRN see comments below Ceftriaxone Sodium 1 gm in 50 mls @ 100 mls/hr 12/05/24 22:40 12/05/24 23:21 Rocephin 1 Gm/Ns 50 Ml IVPB 100 mls/hr HS DEANDRA Administration Losartan Potassium 25 mg 12/06/24 09:00 12/06/24 14:26 Losartan Potassium 25 Mg Tablet PO 25 mg DAILY DEANDRA Administration Miscellaneous Information 1 each 12/05/24 00:01 Nonformulary Drug (Probenecid 500 Mg Tablet) Can Patient Use From Home? XX 01/04/25 00:00 CLARIFY DEANDRA Morphine Sulfate 2 mg 12/05/24 14:50 12/06/24 14:24 Morphine Sulfate (*Crx) 2 Mg/Ml Inj IV PUSH 2 mg Q4H PRN Administration Pain Rated 7-10 Naloxone HCl 0.1 mg 12/05/24 14:50 Naloxone Hcl 0.4 Mg/Ml Vial IV PUSH Q2M PRN Opiate Reversal Non-Formulary Medication 500 mg 12/05/24 17:15 Probenecid PO 01/04/25 17:14 Q12H DEANDRA Ondansetron HCl 4 mg 12/05/24 14:50 Ondansetron Inj 4 Mg/2 Ml Vial IV PUSH Q6H PRN Nausea And Vomiting Pantoprazole Sodium 40 mg 12/05/24 21:00 12/06/24 09:00 Pantoprazole 40 Mg Tablet PO Not Given Q12HR [facility] Potassium Chloride 10 meq 12/06/24 09:00 12/06/24 09:43 Potassium Chloride 10 Meq Er Tablet PO 10 meq BID DEANDRA Administration Pyridostigmine [place] 60 mg 12/06/24 09:00 12/06/24 14:35 Pyridostigmine [place] 60 Mg Tablet PO 60 mg TID DEANDRA Administration Rosuvastatin Calcium 40 mg 12/06/24 09:00 12/06/24 14:26 Rosuvastatin 20 Mg Tablet PO 40 mg DAILY DEANDRA Administration Sodium Chloride 10 ml 12/06/24 06:00 12/06/24 14:26 Central Line Flush IV PUSH 10 ml Q8HR DEANDRA Administration Spironolactone 25 mg 12/05/24 18:00 12/06/24 05:12 Spironolactone 25 Mg Tablet PO 25 mg Q12H DEANDRA Administration Tamsulosin HCl 0.4 mg 12/05/24 15:25 12/06/24 14:25 Tamsulosin Hcl 0.4 Mg Capsule PO 0.4 mg QAM DEANDRA Administration Radiology Results: ITS Impressions Retrograde Pyelogram 12/06/24 12:25 IMPRESSION: 1. Placement of a left intraureteral stent which is in expected position. See procedure note for further detail. Abdomen X-Ray 12/06/24 15:28 IMPRESSION: 1. Stones in the left kidney and left ureteropelvic junction with left internal ureteral stent in expected position. Labs Labs: Laboratory Results - last 24 hr 12/05/24 12/06/24 12/06/24 19:41 05:31 05:31 WBC 18.3 H 19.6 H RBC 2.98 L 3.05 L Hgb 8.5 L 8.8 L Hct 27.1 L 27.7 L MCV 90.9 90.8 MCH 28.5 28.9 MCHC 31.4 L 31.8 L RDW 14.9 H 14.9 H Plt Count 258 269 MPV 9.9 9.7 Immature Gran % (Auto) 1.1 H Neut % (Auto) 81.2 H Lymph % (Auto) 9.4 L [place] % (Auto) 7.5 Eos % (Auto) 0.3 Baso % (Auto) 0.5 Lymph # (Auto) 1.84 [place] # (Auto) 1.5 H Eos # (Auto) 0.1 Baso # (Auto) 0.1 Abs Immat Gran (auto) 0.22 H Absolute Neuts (auto) 15.9 H Absolute Nucleated RBC 0.000 Nucleated RBC % 0.0 Sodium 130 L 130 L Potassium 4.2 4.0 3.9 Chloride 102 101 Carbon Dioxide 28 28 Anion Gap 0 L 1 L BUN 10 10 Creatinine 0.69 L 0.59 L Estim Creat Clear Calc 54 62 Estimated GFR > 60 > 60 Glucose 120 H 131 H Lactic Acid 1.5 Calcium 8.0 L 7.8 L Total Bilirubin 0.5 AST 23 ALT 10 Alkaline Phosphatase 151 H Total Protein 5.0 L Albumin 2.1 L Procalcitonin 0.2 Quality VTE Prophylaxis VTE prophylaxis: mechanical ordered Hospitalist MIPS Advance Care Plan I have confirmed that the patient's Advanced Care Plan is present, code status is documented, or surrogate decision maker is listed in patient medical record.: Yes Medication Reconciliation I have utilized all available resources to obtain, update and review the patients current medications (includes all prescriptions, OTC, herbals, cannabis, and nutritional supplements).: Yes
[2024-12-06] MEDS: PANTOPRAZOLE 40 MG TABLET PO (20:34)
[2024-12-06] MEDS: HYDROcodone/acetaminophen (*CRX) 10-325 MG TABLET 1 TAB PO (20:34)
[2024-12-07] VITALS (11 sets, daily range): BP systolic 113–133; BP diastolic 52–64; PULSE 92–156; RESP 16–18; TEMP 36.6–37; O2SAT 95–100; BMI 31.0
[2024-12-07] MEDS: SPIRONOLACTONE 25 MG TABLET PO ×2 (05:11→17:19)
--- NOTE | 2024-12-07 07:28 | P.PNUR_ITS ---
Progress Note: A&P Assessment and Plan (1) Left ureteral stone: Code(s): N20.1 - Calculus of ureter Status: Acute (2) Left renal stone: Code(s): N20.0 - Calculus of kidney Status: Acute Assessment and Plan: * Patient is tolerating left ureteral stent well. On KUB her stones are calcified. Once she is discharge, and after adequate treatment for her current urinary tract infection, we will schedule left ESWL Subjective Subjective Date/Time Seen: 12/07/24 07:28 Interval history: Tolerating left ureteral stent well Review of Systems Review of Systems: All systems reviewed & are unremarkable except as noted in HPI and below Exam Const: General: no acute distress Resp: Effort & Inspection: normal respiratory effort GI: Inspection: non-distended GI Palp: No abdominal tenderness and No Guarding due to palpation present (GI) Auscultation: normal bowel sounds Objective Data Vital Signs Vital Signs: Vital Signs - 24 hr 12/06/24 10:20 12/06/24 11:46 12/06/24 12:00 Temperature 98.9 F 97.4 F L Pulse Rate 99 102 H 94 Respiratory Rate 18 22 H 17 Blood Pressure 167/55 H 97/75 L 141/68 H Pulse Oximetry 97 99 99 Oxygen Delivery Room Air Simple Face Mask Simple Face Mask Oxygen Flow Rate 10 10 12/06/24 12:15 12/06/24 12:30 12/06/24 13:52 Temperature 97.8 F Pulse Rate 91 95 77 Respiratory Rate 20 19 18 Blood Pressure 161/64 H 156/62 H 165/78 H Pulse Oximetry 96 93 95 Oxygen Delivery Room Air Room Air Oxygen Flow Rate 12/06/24 20:00 12/06/24 20:05 12/07/24 05:16 Temperature 98.8 F 97.9 F Pulse Rate 98 92 Respiratory Rate 16 16 Blood Pressure 137/47 L 118/61 Pulse Oximetry 100 100 Oxygen Delivery Room Air Oxygen Flow Rate Intake/Output Intake/Output: Intake & Output 12/04/24 12/05/24 12/06/24 12/07/24 23:59 23:59 23:59 23:59 Intake Total 790 890 100 Balance 790 890 100 Meds/Results Medications: Active Medications Generic Name Dose Route Start Last Admin Trade Name Freq PRN Reason Stop Dose Admin Acetaminophen 650 mg 12/05/24 14:50 Acetaminophen 325 Mg Tablet PO Q4H PRN Mild Pain (1-3) or Fever Hydrocodone Bitart/Acetaminophen 1 tab 12/05/24 14:52 12/06/24 20:34 Hydrocodone/Acetaminophen (*Crx) 10-325 Mg Tablet PO 1 tab Q8H PRN Administration Pain Rated 4-6 Apixaban 5 mg 12/07/24 09:00 Apixaban 5 Mg Tablet PO BID DEANDRA Bisacodyl 5 mg 12/05/24 14:50 Bisacodyl 5 Mg Tablet Ec PO DAILY PRN Constipation Cyclobenzaprine HCl 10 mg 12/05/24 14:52 Cyclobenzaprine Hcl 10 Mg Tablet PO Q8H PRN muscle spasm Diltiazem HCl 480 mg 12/06/24 09:00 12/06/24 09:42 Diltiazem Hcl Cd 240 Mg Cap.24hr PO 480 mg DAILY DEANDRA Administration Fentanyl 50 mcg 12/05/24 09:00 Fentanyl (*Crx) 50 Mcg Patch TRANSDERM Q72H DEANDRA Heparin Sodium (Beef Lung) 50 units 12/06/24 09:00 12/06/24 14:26 Heparin Flush 50 Units/5 Ml Syringe IV PUSH 50 units QAM DEANDRA Administration Heparin Sodium (Beef Lung) 50 units 12/06/24 02:44 Heparin Flush 50 Units/5 Ml Syringe IV PUSH PRN PRN after intermittent infusion Heparin Sodium (Beef Lung) 50 units 12/06/24 02:44 Heparin Flush 50 Units/5 Ml Syringe IV PUSH PRN PRN after blood draws Heparin Sodium (Porcine) 500 units 12/06/24 02:44 Heparin Sodium Lock Flush 500 Units/5 Ml Syringe IV PUSH PRN PRN see comments below Ceftriaxone Sodium 1 gm in 50 mls @ 100 mls/hr 12/05/24 22:40 12/06/24 20:33 Rocephin 1 Gm/Ns 50 Ml IVPB 100 mls/hr HS DEANDRA Administration Losartan Potassium 50 mg 12/07/24 09:00 Losartan Potassium 50 Mg Tablet PO DAILY [facility] Miscellaneous Information 1 each 12/05/24 00:01 Nonformulary Drug (Probenecid 500 Mg Tablet) Can Patient Use From Home? XX 01/04/25 00:00 CLARIFY [facility] Morphine Sulfate 2 mg 12/05/24 14:50 12/06/24 14:24 Morphine Sulfate (*Crx) 2 Mg/Ml Inj IV PUSH 2 mg Q4H PRN Administration Pain Rated 7-10 Naloxone HCl 0.1 mg 12/05/24 14:50 Naloxone Hcl 0.4 Mg/Ml Vial IV PUSH Q2M PRN Opiate Reversal Non-Formulary Medication 500 mg 12/05/24 17:15 Probenecid PO 01/04/25 17:14 Q12H DEANDRA Ondansetron HCl 4 mg 12/05/24 14:50 Ondansetron Inj 4 Mg/2 Ml Vial IV PUSH Q6H PRN Nausea And Vomiting Pantoprazole Sodium 40 mg 12/05/24 21:00 12/06/24 20:34 Pantoprazole 40 Mg Tablet PO 40 mg Q12HR DEANDRA Administration Potassium Chloride 10 meq 12/06/24 09:00 12/06/24 17:54 Potassium Chloride 10 Meq Er Tablet PO 10 meq BID DEANDRA Administration Pyridostigmine [place] 60 mg 12/06/24 09:00 12/06/24 17:54 Pyridostigmine [place] 60 Mg Tablet PO 60 mg TID DEANDRA Administration Rosuvastatin Calcium 40 mg 12/06/24 09:00 12/06/24 14:26 Rosuvastatin 20 Mg Tablet PO 40 mg DAILY DEANDRA Administration Sodium Chloride 10 ml 12/06/24 06:00 12/06/24 20:38 Central Line Flush IV PUSH 10 ml Q8HR DEANDRA Administration Spironolactone 25 mg 12/05/24 18:00 12/07/24 05:11 Spironolactone 25 Mg Tablet PO 25 mg Q12H DEANDRA Administration Tamsulosin HCl 0.4 mg 12/05/24 15:25 12/06/24 14:25 Tamsulosin Hcl 0.4 Mg Capsule PO 0.4 mg QAM DEANDRA Administration Radiology Results: ITS Impressions Retrograde Pyelogram 12/06/24 12:25 IMPRESSION: 1. Placement of a left intraureteral stent which is in expected position. See procedure note for further detail. Abdomen X-Ray 12/06/24 15:28 IMPRESSION: 1. Stones in the left kidney and left ureteropelvic junction with left internal ureteral stent in expected position.
[2024-12-07] MEDS: POTASSIUM CHLORIDE 10 MEQ ER TABLET PO ×2 (09:59→17:19)
[2024-12-07] MEDS: dilTIAZem HCL CD 240 MG CAP.24HR 480 MG PO (09:59)
[2024-12-07] MEDS: ROSUVASTATIN 20 MG TABLET 40 MG PO (09:59)
[2024-12-07] MEDS: pyRIDostigmine bromide 60 MG TABLET PO ×3 (09:59→17:19)
[2024-12-07] MEDS: APIXABAN 5 MG TABLET PO ×2 (09:59→17:19)
[2024-12-07] MEDS: LOSARTAN POTASSIUM 50 MG TABLET PO (10:00)
[2024-12-07] MEDS: TAMSULOSIN HCL 0.4 MG CAPSULE PO (10:00)
[2024-12-07] MEDS: PANTOPRAZOLE 40 MG TABLET PO ×2 (10:00→20:28)
[2024-12-07 12:14] LABS: Basophils Absolute Auto 0.1 K/mm3 (0.0-0.1); Basophils Percent Auto 0.3 % (0.2-1.2); Hematocrit 26.4 % (37.0-47.0); Hemoglobin 8.4 g/dL (12.0-15.0); Immature Granulocyte Absolute 0.27 K/mm3 (0.00-0.031); Immature Granulocyte Percent A 1.2 % (0-0.5); Lymphocytes Absolute Auto 1.39 K/mm3 (0.9-3.2); Lymphocytes Percent Auto 6.4 % (18.3-44.2); Mean Corpuscular HGB Conc 31.8 g/dl (32-36); Mean Corpuscular Hemoglobin 28.6 pg (26-34); Mean Corpuscular Volume 89.8 fl (80-100); Mean Platelet Volume 9.9 fl (7.4-10.4); Monocytes Absolute Auto 1.5 K/mm3 (0.1-0.6); Neutrophils Absolute Auto 18.5 K/mm3 (1.3-6.7); Neutrophils Percent Auto 85.1 % (45.5-73.1); Platelet Count Result 249 k/mm3 (150-375); Red Blood Count 2.94 M/mm3 (4.2-5.4); White Blood Count 21.7 K/mm3 (4.5-10.0)
[2024-12-07 12:28] LABS: Anion Gap 0 mmol/L (4-12); Blood Urea Nitrogen 10 mg/dL (7-17); Calcium 7.9 mg/dL (8.4-10.2); Carbon Dioxide 28 mmol/L (22-30); Chloride 101 mmol/L (98-107); Estimated CRCL calculation 65 ml/min; Estimated Glomerular Filt Rate > 60; Glucose 143 mg/dL (65-110); Sodium 129 mmol/L (137-145)
[2024-12-07] MEDS: CENTRAL LINE FLUSH 10 ML IV PUSH ×2 (13:44→20:28)
--- NOTE | 2024-12-07 15:16 | ECG_ITS ---
Test Date: 2024-12-07 15:29:45 Measurements Intervals [place] Rate: 109 P: 0 AR: 0 QRS: -16 QRSD: 100 T: 35 QT: 334 QTc: 451 Interpretive Statements ATRIAL FIBRILLATION WITH RAPID VENTRICULAR RESPONSE ABNORMAL RHYTHM ECG No previous ECG available for comparison Electronically Signed On 12-07-2024 23:53:01 CERTIFIED ART THERAPIST by Sushil Navas M.D.
[2024-12-07] MEDS: METOPROLOL TARTRATE INJ 5 MG/5 ML VIAL IV PUSH ×2 (15:27→20:22)
--- NOTE | 2024-12-07 16:04 | PM.IMPN ---
Progress Note: A&P Assessment and Plan (1) Sepsis: Qualifiers: Sepsis type: sepsis due to unspecified organism Sepsis acute organ dysfunction status: without acute organ dysfunction Qualified Code(s): A41.9 - Sepsis, unspecified organism Code(s): A41.9 - Sepsis, unspecified organism Status: Acute Assessment and Plan: - meets SIRS criteria on admission: HR, WBC, Lactic acidosis. - suspected source: UTI - lactic acid: 5.5 -> 1.5 - repeat lactic wnl, procalcitonin 0.2 - given 2 L bolus at outside hospital - blood cultures drawn on 12/04 at outside hospital pending results. - UA suggestive of UTI - started on ceftriaxone on 12/04. - Follow cultures as we continue with IV abx. (2) UTI (urinary tract infection): Qualifiers: Urinary tract infection type: acute cystitis Hematuria presence: with hematuria Qualified Code(s): N30.01 - Acute cystitis with hematuria Code(s): N39.0 - Urinary tract infection, site not specified Status: Acute Assessment and Plan: - UA: Small bilirubin, trace ketones, small leukocytes, TNTC WBC, 20-30 RBC, 1+ bacteria, 0-2 epithelial cells. - UC pending, preliminary results Gram-negative bacilli - no previous micro available for review - started on Ceftriaxone on 12/05 - Eliquis for held at outside hospital due to hematuria, - Ureteral stent placed and Eliquis restarted. (3) Hydronephrosis concurrent with and due to calculi of kidney and ureter: Code(s): N13.2 - Hydronephrosis with renal and ureteral calculous obstruction Status: Acute Assessment and Plan: - CT chest/abd/pelvis: 1. Mild thickening of the transverse colon with mild edema in the mesentery adjacent to the colon near the anastomosis. It may be postoperative given recent surgery. No abscess. 2. A 5 mm stone in the left ureteropelvic junction with mild left hydronephrosis 3. Mild free fluid in the pelvis. - Urology consulted; - s/p Cystoscopy, left retrograde pyelography, left ureteral stent placement. - Started on Flomax 0.4 mg daily. - Further mgt per urologist outpatient. (4) CKD (chronic kidney disease): Qualifiers: Chronic kidney disease stage: unspecified stage Qualified Code(s): N18.9 - Chronic kidney disease, unspecified Code(s): N18.9 - Chronic kidney disease, unspecified Status: Acute Assessment and Plan: - Possibly affected by hydronephrosis. - Continues to improve with IVF hydration. - Continue IVF as we monitor closely. - Avoid nephrotoxins. (5) Hypertension: Qualifiers: Hypertension type: primary hypertension Qualified Code(s): I10 - Essential (primary) hypertension Code(s): I10 - Essential (primary) hypertension Status: Acute Assessment and Plan: - chronic, - BP readings reviewed. - Previously trending normal high. - losartan dose increased 25>>50 mg daily. - currently appears well controlled. - continue spironolactone 25 mg b.i.d. - continue to monitor and adjust meds as needed. Plan Diet: Heart Healthy GI Prophylaxis: Not currently indicated DVT Prophylaxis: SCDs, Eliquis Lines: Peripheral Code Status: full code Time Spent With Patient Time with patient: 15 - 25 minutes Subjective Date/time seen: 12/07/24 11:04 Patient states she feels all right and has been ambulating in the room and doing well. Denies any acute distressful symptoms. Review of Systems Review of Systems: All systems reviewed & are unremarkable except as noted in HPI and below Exam Narrative: General: Well appearing, no acute distress. HEENT: Atraumatic, PERRL, EOMI, moist mucosa. NECK: Supple. Lungs: Clear bilaterally. Heart: RRR, no murmurs. Abdomen: Soft, non-tender, non-distended, +ve BS X4 Quadrants. Extremities: Acyanotic, no edema. Skin: Warm and dry. No lesions noted. Neuro: Well oriented. CN II-XII grossly intact. Psych: Pleasant and co-operative. Objective Data Vital Signs Vital Signs: Vital Signs - 24 hr 12/06/24 20:00 12/06/24 20:05 12/07/24 05:16 Temperature 98.8 F 97.9 F Pulse Rate 98 92 Respiratory Rate 16 16 Blood Pressure 137/47 L 118/61 Pulse Oximetry 100 100 Oxygen Delivery Room Air 12/07/24 14:00 12/07/24 15:27 Temperature 98.6 F Pulse Rate 156 H 154 H Respiratory Rate 18 Blood Pressure 115/52 L Pulse Oximetry 95 Oxygen Delivery Intake/Output Intake/Output: Intake & Output 12/04/24 12/05/24 12/06/24 12/07/24 23:59 23:59 23:59 23:59 Intake Total 790 890 580 Balance 790 890 580 Meds/Results Medications: Active Medications Generic Name Dose Route Start Last Admin Trade Name Freq PRN Reason Stop Dose Admin Acetaminophen 650 mg 12/05/24 14:50 Acetaminophen 325 Mg Tablet PO Q4H PRN Mild Pain (1-3) or Fever Hydrocodone Bitart/Acetaminophen 1 tab 12/05/24 14:52 12/06/24 20:34 Hydrocodone/Acetaminophen (*Crx) 10-325 Mg Tablet PO 1 tab Q8H PRN Administration Pain Rated 4-6 Apixaban 5 mg 12/07/24 09:00 12/07/24 09:59 Apixaban 5 Mg Tablet PO 5 mg BID DEANDRA Administration Bisacodyl 5 mg 12/05/24 14:50 Bisacodyl 5 Mg Tablet Ec PO DAILY PRN Constipation Cyclobenzaprine HCl 10 mg 12/05/24 14:52 Cyclobenzaprine Hcl 10 Mg Tablet PO Q8H PRN muscle spasm Diltiazem HCl 480 mg 12/06/24 09:00 12/07/24 09:59 Diltiazem Hcl Cd 240 Mg Cap.24hr PO 480 mg DAILY DEANDRA Administration Fentanyl 50 mcg 12/05/24 09:00 12/07/24 09:52 Fentanyl (*Crx) 50 Mcg Patch TRANSDERM Not Given Q72H DEANDRA Heparin Sodium (Beef Lung) 50 units 12/06/24 09:00 12/07/24 10:00 Heparin Flush 50 Units/5 Ml Syringe IV PUSH 50 units QAM DEANDRA Administration Heparin Sodium (Beef Lung) 50 units 12/06/24 02:44 Heparin Flush 50 Units/5 Ml Syringe IV PUSH PRN PRN after intermittent infusion Heparin Sodium (Beef Lung) 50 units 12/06/24 02:44 Heparin Flush 50 Units/5 Ml Syringe IV PUSH PRN PRN after blood draws Heparin Sodium (Porcine) 500 units 12/06/24 02:44 Heparin Sodium Lock Flush 500 Units/5 Ml Syringe IV PUSH PRN PRN see comments below Ceftriaxone Sodium 1 gm in 50 mls @ 100 mls/hr 12/05/24 22:40 12/06/24 20:33 Rocephin 1 Gm/Ns 50 Ml IVPB 100 mls/hr HS DEANDRA Administration Losartan Potassium 50 mg 12/07/24 09:00 12/07/24 10:00 Losartan Potassium 50 Mg Tablet PO 50 mg DAILY DEANDRA Administration Miscellaneous Information 1 each 12/05/24 00:01 Nonformulary Drug (Probenecid 500 Mg Tablet) Can Patient Use From Home? XX 01/04/25 00:00 CLARIFY DEANDRA Morphine Sulfate 2 mg 12/05/24 14:50 12/06/24 14:24 Morphine Sulfate (*Crx) 2 Mg/Ml Inj IV PUSH 2 mg Q4H PRN Administration Pain Rated 7-10 Naloxone HCl 0.1 mg 12/05/24 14:50 Naloxone Hcl 0.4 Mg/Ml Vial IV PUSH Q2M PRN Opiate Reversal Non-Formulary Medication 500 mg 12/05/24 17:15 Probenecid PO 01/04/25 17:14 Q12H DEANDRA Ondansetron HCl 4 mg 12/05/24 14:50 Ondansetron Inj 4 Mg/2 Ml Vial IV PUSH Q6H PRN Nausea And Vomiting Pantoprazole Sodium 40 mg 12/05/24 21:00 12/07/24 10:00 Pantoprazole 40 Mg Tablet PO 40 mg Q12HR DEANDRA Administration Potassium Chloride 10 meq 12/06/24 09:00 12/07/24 09:59 Potassium Chloride 10 Meq Er Tablet PO 10 meq BID DEANDRA Administration Pyridostigmine [place] 60 mg 12/06/24 09:00 12/07/24 13:46 Pyridostigmine [place] 60 Mg Tablet PO 60 mg TID DEANDRA Administration Rosuvastatin Calcium 40 mg 12/06/24 09:00 12/07/24 09:59 Rosuvastatin 20 Mg Tablet PO 40 mg DAILY DEANDRA Administration Sodium Chloride 10 ml 12/06/24 06:00 12/07/24 13:44 Central Line Flush IV PUSH 10 ml Q8HR DEANDRA Administration Spironolactone 25 mg 12/05/24 18:00 12/07/24 05:11 Spironolactone 25 Mg Tablet PO 25 mg Q12H DEANDRA Administration Tamsulosin HCl 0.4 mg 12/05/24 15:25 12/07/24 10:00 Tamsulosin Hcl 0.4 Mg Capsule PO 0.4 mg QAM DEANDRA Administration Radiology Results: ITS Impressions Retrograde Pyelogram 12/06/24 12:25 IMPRESSION: 1. Placement of a left intraureteral stent which is in expected position. See procedure note for further detail. Abdomen X-Ray 12/06/24 15:28 IMPRESSION: 1. Stones in the left kidney and left ureteropelvic junction with left internal ureteral stent in expected position. Labs Labs: Laboratory Results - last 24 hr 12/07/24 12:08 WBC 21.7 H RBC 2.94 L Hgb 8.4 L Hct 26.4 L MCV 89.8 MCH 28.6 MCHC 31.8 L RDW 15.0 H Plt Count 249 MPV 9.9 Immature Gran % (Auto) 1.2 H Neut % (Auto) 85.1 H Lymph % (Auto) 6.4 L [place] % (Auto) 7.0 Eos % (Auto) 0.0 Baso % (Auto) 0.3 Lymph # (Auto) 1.39 [place] # (Auto) 1.5 H Eos # (Auto) 0.0 Baso # (Auto) 0.1 Abs Immat Gran (auto) 0.27 H Absolute Neuts (auto) 18.5 H Absolute Nucleated RBC 0.000 Nucleated RBC % 0.0 Sodium 129 L Potassium 4.0 Chloride 101 Carbon Dioxide 28 Anion Gap 0 L BUN 10 Creatinine 0.56 L Estim Creat Clear Calc 65 Estimated GFR > 60 Glucose 143 H Calcium 7.9 L Quality VTE Prophylaxis VTE prophylaxis: mechanical ordered Hospitalist MIPS Advance Care Plan I have confirmed that the patient's Advanced Care Plan is present, code status is documented, or surrogate decision maker is listed in patient medical record.: Yes Medication Reconciliation I have utilized all available resources to obtain, update and review the patients current medications (includes all prescriptions, OTC, herbals, cannabis, and nutritional supplements).: Yes
[2024-12-07] MEDS: SODIUM CHLORIDE 0.9% IV 1,000 ML 100 ML IV CONT (17:19)
[2024-12-07] MEDS: HYDROcodone/acetaminophen (*CRX) 10-325 MG TABLET 1 TAB PO (17:34)
[2024-12-08] VITALS (17 sets, daily range): BP systolic 108–145; BP diastolic 40–93; PULSE 74–123; RESP 18–22; TEMP 36.6–37.7; O2SAT 97–100
[2024-12-08] MEDS: SODIUM CHLORIDE 0.9% IV 1,000 ML 100 ML IV CONT (06:15)
[2024-12-08] MEDS: SPIRONOLACTONE 25 MG TABLET PO ×2 (06:16→17:19)
[2024-12-08] MEDS: CENTRAL LINE FLUSH 10 ML IV PUSH ×3 (06:16→21:52)
[2024-12-08 06:29] LABS: Basophils Absolute Auto 0.1 K/mm3 (0.0-0.1); Basophils Percent Auto 0.4 % (0.2-1.2); Eosinophils Percent Auto 0.1 % (0-4.4); Hematocrit 24.8 % (37.0-47.0); Hemoglobin 7.8 g/dL (12.0-15.0); Immature Granulocyte Absolute 0.18 K/mm3 (0.00-0.031); Immature Granulocyte Percent A 0.9 % (0-0.5); Lymphocytes Absolute Auto 1.15 K/mm3 (0.9-3.2); Lymphocytes Percent Auto 5.4 % (18.3-44.2); Mean Corpuscular HGB Conc 31.5 g/dl (32-36); Mean Corpuscular Hemoglobin 28.4 pg (26-34); Mean Corpuscular Volume 90.2 fl (80-100); Mean Platelet Volume 9.6 fl (7.4-10.4); Monocytes Absolute Auto 1.5 K/mm3 (0.1-0.6); Monocytes Percent Auto 7.1 % (2.6-8.5); Neutrophils Absolute Auto 18.2 K/mm3 (1.3-6.7); Neutrophils Percent Auto 86.1 % (45.5-73.1); Platelet Count Result 234 k/mm3 (150-375); Red Blood Count 2.75 M/mm3 (4.2-5.4); White Blood Count 21.1 K/mm3 (4.5-10.0)
[2024-12-08 06:55] LABS: Anion Gap 1 mmol/L (4-12); Blood Urea Nitrogen 10 mg/dL (7-17); Calcium 7.6 mg/dL (8.4-10.2); Carbon Dioxide 27 mmol/L (22-30); Chloride 103 mmol/L (98-107); Estimated CRCL calculation 68 ml/min; Estimated Glomerular Filt Rate > 60; Glucose 128 mg/dL (65-110); Potassium 3.9 mmol/L (3.4-5.0); Sodium 131 mmol/L (137-145)
[2024-12-08] MEDS: TAMSULOSIN HCL 0.4 MG CAPSULE PO (08:48)
[2024-12-08] MEDS: APIXABAN 5 MG TABLET PO ×2 (08:48→17:19)
[2024-12-08] MEDS: PANTOPRAZOLE 40 MG TABLET PO ×2 (08:48→21:52)
[2024-12-08] MEDS: POTASSIUM CHLORIDE 10 MEQ ER TABLET PO ×2 (08:48→17:19)
[2024-12-08] MEDS: ROSUVASTATIN 20 MG TABLET 40 MG PO (08:48)
[2024-12-08] MEDS: pyRIDostigmine bromide 60 MG TABLET PO ×3 (08:48→17:19)
[2024-12-08] MEDS: HYDROcodone/acetaminophen (*CRX) 10-325 MG TABLET 1 TAB PO (08:48)
[2024-12-08] MEDS: dilTIAZem HCL CD 240 MG CAP.24HR 480 MG PO (08:48)
[2024-12-08] MEDS: LOSARTAN POTASSIUM 50 MG TABLET PO (08:48)
--- NOTE | 2024-12-08 10:03 | PM.CNCAR ---
Assessment and Plan Assessment and plan (1) Atrial fibrillation with rapid ventricular response: Code(s): I48.91 - Unspecified atrial fibrillation Status: Acute (2) Hypertension: Qualifiers: Hypertension type: primary hypertension Qualified Code(s): I10 - Essential (primary) hypertension Code(s): I10 - Essential (primary) hypertension Status: Acute (3) Sepsis: Qualifiers: Sepsis type: sepsis due to unspecified organism Sepsis acute organ dysfunction status: without acute organ dysfunction Qualified Code(s): A41.9 - Sepsis, unspecified organism Code(s): A41.9 - Sepsis, unspecified organism Status: Acute (4) UTI (urinary tract infection): Qualifiers: Urinary tract infection type: acute cystitis Hematuria presence: with hematuria Qualified Code(s): N30.01 - Acute cystitis with hematuria Code(s): N39.0 - Urinary tract infection, site not specified Status: Acute (5) CKD (chronic kidney disease): Qualifiers: Chronic kidney disease stage: unspecified stage Qualified Code(s): N18.9 - Chronic kidney disease, unspecified Code(s): N18.9 - Chronic kidney disease, unspecified Status: Acute (6) Hydronephrosis concurrent with and due to calculi of kidney and ureter: Code(s): N13.2 - Hydronephrosis with renal and ureteral calculous obstruction Status: Acute Plan Assessment: AFib with RVR Hypertension Hyperlipidemia Sepsis secondary to UTI UTI on ceftriaxone Left ureteropelvic junction renal stone cystoscopy, left retrograde pyelography, and left ureteral stent placement by Urology Hydronephrosis Hematuria Plan: Patient has been getting IV metoprolol pushes for RVR. Recommend starting metoprolol 25 mg p.o. b.i.d. for rate control. Hold metoprolol for heart rate less than 50 and/or SBP less than 90 Continue diltiazem 480 mg p.o. daily. This is her home medication Continue apixaban for anticoagulation if okay per Urology given recent hematuria Continue statin Continue spironolactone Continue losartan Check and replace electrolytes to keep potassium more than 4 and magnesium more than 2 Management noncardiac medical problems per primary team History of Present Illness History of Present Illness Consult date/time: 12/08/24 10:03 Reason For Visit: Kidney Stone Narrative: 79-year-old female with hypertension, hyperlipidemia, atrial fibrillation on chronic anticoagulation, COPD, myasthenia gravis, osteoarthritis, anemia, CKD, renal stone, recent hospitalization and bowel surgery for intussusception is admitted with sepsis secondary to UTI, renal stone. CT showed a 5 mm stone in the left ureteropelvic junction with mild left hydronephrosis. She started on ceftriaxone for UTI. Urology was consulted and performed cystoscopy, left retrograde pyelography, and left ureteral stent placement. She was noted to have RVR and Cardiology is consulted for management of atrial fibrillation with RVR. EKG showed AFib with RVR with rate of 109. Patient reports off and on palpitations lasting for a few seconds. No chest pain, lightheadedness, dizziness, leg swelling, recent weight gain, presyncope, syncope. She wants to go home and is frustrated with multiple weeks of hospitalization in the past month. Review of Systems Review of Systems: A complete review of systems was performed and negative other than those mentioned in HPI [facility] Past Medical History Medical History (Updated 12/08/24 @ 10:14 by Nkechi Velasquez MD) Anemia CKD (chronic kidney disease) Vitamin B deficiency Osteoarthritis Atrial fibrillation Myasthenia gravis COPD (chronic obstructive pulmonary disease) Hypertension Hyperlipidemia Surgical History Surgical History History of breast lump/mass excision History of cholecystectomy H/O aortic valve replacement Family History Family History Other Kidney stones Malignant neoplasm of prostate Social History Social History Smoking status: Never smoker Second hand tobacco smoke exposure: Yes Alcohol intake: never Substance use: never Do You Feel Safe in your Home?: Yes Lack of Transportation: No Lack of Food: Never True Current Housing: I Have Housing Concerned About Future Housing: No Difficulty Paying Gas/Electric Bills: No Difficulty Paying for Meds: No Currently Unemployed: No Education: High School Diploma/GED Difficulty w/ Childcare or Family Care: No Spiritual care concerns: No Meds Home Medications and Allergies Home Medications ?Medication ?Instructions ?Recorded ?Confirmed ?Type apixaban 5 mg tablet (Eliquis) 5 mg PO BID 12/05/24 12/05/24 History cyclobenzaprine 10 mg tablet 10 mg PO Q8H PRN muscle spasm 12/05/24 12/05/24 History diltiazem HCl 240 mg 480 mg PO DAILY 12/05/24 12/05/24 History capsule,extended release 24 hr fentanyl 50 mcg/hr transdermal 1 patch transdermal Q72H pain 12/05/24 12/05/24 History patch hydrocodone 10 mg-acetaminophen 1 tablet PO Q8H PRN pain 12/05/24 12/05/24 History 325 mg tablet losartan 25 mg tablet 25 mg PO DAILY bp 12/05/24 12/05/24 History omeprazole 20 mg capsule,delayed 20 mg PO BID 12/05/24 12/05/24 History release ondansetron 4 mg disintegrating 4 mg translingual Q6H PRN nausea 12/05/24 12/05/24 History tablet and vomiting potassium chloride 10 mEq 10 meq PO BID 12/05/24 12/05/24 History capsule,extended release probenecid 500 mg tablet 500 mg PO Q12H 12/05/24 12/05/24 History pyridostigmine bromide 60 mg tablet 60 mg PO TID 12/05/24 12/05/24 History rosuvastatin 40 mg tablet 40 mg PO DAILY 12/05/24 12/05/24 History spironolactone 25 mg tablet 25 mg PO Q12H 12/05/24 12/05/24 History Allergies Allergy/AdvReac Type Severity Reaction Status Date / Time fish oil Allergy Unknown Verified 12/06/24 10:31 mushroom Allergy Unknown Verified 12/06/24 10:31 penicillin V Allergy Unknown Verified 12/06/24 10:31 famciclovir AdvReac Unknown Verified 12/06/24 10:31 ketorolac AdvReac Unknown Verified 12/06/24 10:31 oxybutynin AdvReac Unknown Verified 12/06/24 10:31 Sulfa (Sulfonamide AdvReac Unknown Verified 12/06/24 10:31 Antibiotics) tetracycline AdvReac Unknown Verified 12/06/24 10:31 topiramate AdvReac Unknown Verified 12/06/24 10:31 sea food Allergy Unknown Uncoded 12/06/24 10:31 Vital Signs Vital Signs - 24 hr 12/07/24 14:00 12/07/24 15:27 12/07/24 17:17 Temperature 37.0 C Pulse Rate 156 H 154 H 145 H Respiratory Rate 18 Blood Pressure 115/52 L Pulse Oximetry 95 99 Oxygen Delivery 12/07/24 20:00 12/07/24 20:00 12/07/24 20:07 Temperature 37.0 C Pulse Rate 156 H 95 Respiratory Rate 18 Blood Pressure 113/56 L Pulse Oximetry 97 Oxygen Delivery Room Air 12/07/24 20:22 12/07/24 20:29 12/07/24 21:03 Temperature Pulse Rate 152 H 130 H Respiratory Rate Blood Pressure 126/64 Pulse Oximetry Oxygen Delivery 12/07/24 22:00 12/07/24 23:39 12/08/24 00:00 Temperature 36.6 C Pulse Rate 100 93 Respiratory Rate 18 Blood Pressure 133/52 L Pulse Oximetry 99 Oxygen Delivery Room Air 12/08/24 00:00 12/08/24 02:00 12/08/24 03:48 Temperature 37.1 C Pulse Rate 100 97 101 H Respiratory Rate 18 Blood Pressure 138/57 L Pulse Oximetry 98 Oxygen Delivery 12/08/24 04:00 12/08/24 04:00 12/08/24 06:00 Temperature Pulse Rate 113 H 109 H Respiratory Rate Blood Pressure Pulse Oximetry Oxygen Delivery Room Air 12/08/24 08:00 Temperature Pulse Rate 105 H Respiratory Rate 20 Blood Pressure 108/65 Pulse Oximetry 97 Oxygen Delivery Results Labs and Meds 12/08/24 06:23 12/08/24 06:23 Lab results: CBC 12/07/24 12/08/24 Range/Units 12:08 06:23 WBC 21.7 H 21.1 H (4.5-10.0) K/mm3 RBC 2.94 L 2.75 L (4.2-5.4) M/mm3 Hgb 8.4 L 7.8 L (12.0-15.0) g/dL Hct 26.4 L 24.8 L (37.0-47.0) % Plt Count 249 234 (150-375) k/mm3 Lymph # (Auto) 1.39 1.15 (0.9-3.2) K/mm3 [place] # (Auto) 1.5 H 1.5 H (0.1-0.6) K/mm3 Eos # (Auto) 0.0 0.0 (0-0.3) K/mm3 Baso # (Auto) 0.1 0.1 (0.0-0.1) K/mm3 Comprehensive Metabolic Panel 12/07/24 12/08/24 Range/Units 12:08 06:23 Sodium 129 L 131 L (137-145) mmol/L Potassium 4.0 3.9 (3.4-5.0) mmol/L Chloride 101 103 (98-107) mmol/L Carbon Dioxide 28 27 (22-30) mmol/L BUN 10 10 (7-17) mg/dL Creatinine 0.56 L 0.57 L (0.7-1.0) mg/dL Glucose 143 H 128 H (65-110) mg/dL Calcium 7.9 L 7.6 L (8.4-10.2) mg/dL Intake and Output 12/07/24 12/08/24 12/08/24 23:59 07:59 15:59 Intake Total 290 1000 Output Total 0 Balance 290 1000 Intake: IV 50 1000 Sodium Chloride 0.9% IV 1,000 1000 ml @ 100 mls/hr IV CONT .Q10H DEANDRA Rx#:[id number] cefTRIAXone 1 GM/NS 50 ML 1 gm 50 In 50 ml @ 100 mls/hr IVPB HS DEANDRA Rx#:[id number] Oral 240 Output: Urine 0 Other: # Unmeasured Voids 1 Patient Weight 12/08/24 23:59 Weight 86.6 kg
--- NOTE | 2024-12-08 16:00 | PM.IMPN ---
Progress Note: A&P Assessment and Plan (1) Sepsis: Qualifiers: Sepsis type: sepsis due to unspecified organism Sepsis acute organ dysfunction status: without acute organ dysfunction Qualified Code(s): A41.9 - Sepsis, unspecified organism Code(s): A41.9 - Sepsis, unspecified organism Status: Acute Assessment and Plan: - meets SIRS criteria on admission: HR, WBC, Lactic acidosis. - suspected source: UTI - lactic acid: 5.5 -> 1.5 - repeat lactic wnl, procalcitonin 0.2 - given 2 L bolus at outside hospital - blood cultures drawn on 12/04 at outside hospital growing an Enterococcus faecalis. -urine culture growing Proteus mirabilis. -both appear pansensitive. -continue ceftriaxone started on 12/04. -will consider conversion to p.o. antibiotics tomorrow. (2) UTI (urinary tract infection): Qualifiers: Urinary tract infection type: acute cystitis Hematuria presence: with hematuria Qualified Code(s): N30.01 - Acute cystitis with hematuria Code(s): N39.0 - Urinary tract infection, site not specified Status: Acute Assessment and Plan: - UA: Small bilirubin, trace ketones, small leukocytes, TNTC WBC, 20-30 RBC, 1+ bacteria, 0-2 epithelial cells. - UC growing Proteus mirabilis, pansensitive. -continue Ceftriaxone started on 12/05 - Eliquis for held at outside hospital due to hematuria, - Ureteral stent placed and Eliquis restarted. (3) Hydronephrosis concurrent with and due to calculi of kidney and ureter: Code(s): N13.2 - Hydronephrosis with renal and ureteral calculous obstruction Status: Acute Assessment and Plan: - CT chest/abd/pelvis: 1. Mild thickening of the transverse colon with mild edema in the mesentery adjacent to the colon near the anastomosis. It may be postoperative given recent surgery. No abscess. 2. A 5 mm stone in the left ureteropelvic junction with mild left hydronephrosis 3. Mild free fluid in the pelvis. - Urology consulted; - s/p Cystoscopy, left retrograde pyelography, left ureteral stent placement. - Started on Flomax 0.4 mg daily. - Further mgt per urologist outpatient. (4) Atrial fibrillation with rapid ventricular response: Code(s): I48.91 - Unspecified atrial fibrillation Status: Acute Assessment and Plan: -patient with 2 episodes of AFib RVR, mainly due to inactivity. -cardiology consulted. -patient started on metoprolol 25 mg mid day. -Rate currently remains well controlled on telemetry monitoring. -monitor it closely with activity. (5) Generalized muscle weakness: Code(s): M62.81 - Muscle weakness (generalized) Status: Acute Assessment and Plan: -likely from advanced age and worsened by prolonged bedrest. -PT/OT have bile and treatment. -Fall precautions. -monitor and assist with care. (6) CKD (chronic kidney disease): Qualifiers: Chronic kidney disease stage: unspecified stage Qualified Code(s): N18.9 - Chronic kidney disease, unspecified Code(s): N18.9 - Chronic kidney disease, unspecified Status: Acute Assessment and Plan: - Possibly affected by hydronephrosis. -kidney function currently appears baseline. -Patient with good p.o. intake and will discontinue IVF. -continue to encourage p.o. fluids. (7) Hypertension: Qualifiers: Hypertension type: primary hypertension Qualified Code(s): I10 - Essential (primary) hypertension Code(s): I10 - Essential (primary) hypertension Status: Acute Assessment and Plan: - chronic, - BP readings reviewed. - Previously trending normal high. - losartan dose increased 25>>50 mg daily. - currently remains well controlled. - continue spironolactone 25 mg b.i.d. - continue to monitor and adjust meds as needed. Plan Diet: Heart Healthy GI Prophylaxis: Not currently indicated DVT Prophylaxis: SCDs, Emeterio Lines: Peripheral Code Status: full code Time Spent With Patient Time with patient: 25 - 35 minutes Subjective Date/time seen: 12/08/24 15:00 Patient on bedrest and states that she is tired of staying in the hospital and wants to go home. She states does not understand why people do not want to let her go home and soon she will start getting cranky. States she has a physical therapy will come to assist her with exercises and she will do okay at home. Interval history: Patient calm on bedrest and appears frustrated and upset that she did not get discharged home today. Patient was planned to be discharged home but prior to discharge she ambulated briefly with OT and the patient's heart rate elevated to 180s so therapy was stopped. Patient with an episode of AFib with RVR overnight and Cardiology was consulted. Patient has just been seen by Cardiology and has been started on metoprolol 25 mg b.i.d. for rate control. Review of Systems Review of Systems: All systems reviewed & are unremarkable except as noted in HPI and below Exam Narrative: General: Well appearing, no acute distress. HEENT: Atraumatic, PERRL, EOMI, moist mucosa. NECK: Supple. Lungs: Clear bilaterally. Heart: Irregularly irregular, no murmurs. Abdomen: Soft, non-tender, non-distended, +ve BS X4 Quadrants. Extremities: Acyanotic, no edema. Skin: Warm and dry. No lesions noted. Neuro: Fairly well oriented. CN II-XII grossly intact. Psych: Pleasant and co-operative. Objective Data Vital Signs Vital Signs: Vital Signs - 24 hr 12/07/24 17:17 12/07/24 20:00 12/07/24 20:00 Temperature Pulse Rate 145 H 156 H Respiratory Rate Blood Pressure Pulse Oximetry 99 Oxygen Delivery Room Air 12/07/24 20:07 12/07/24 20:22 12/07/24 20:29 Temperature 98.6 F Pulse Rate 95 152 H Respiratory Rate 18 Blood Pressure 113/56 L 126/64 Pulse Oximetry 97 Oxygen Delivery 12/07/24 21:03 12/07/24 22:00 12/07/24 23:39 Temperature 97.8 F Pulse Rate 130 H 100 93 Respiratory Rate 18 Blood Pressure 133/52 L Pulse Oximetry 99 Oxygen Delivery 12/08/24 00:00 12/08/24 00:00 12/08/24 02:00 Temperature Pulse Rate 100 97 Respiratory Rate Blood Pressure Pulse Oximetry Oxygen Delivery Room Air 12/08/24 03:48 12/08/24 04:00 12/08/24 04:00 Temperature 98.8 F Pulse Rate 101 H 113 H Respiratory Rate 18 Blood Pressure 138/57 L Pulse Oximetry 98 Oxygen Delivery Room Air 12/08/24 06:00 12/08/24 08:00 12/08/24 08:00 Temperature Pulse Rate 109 H 105 H 97 Respiratory Rate 20 Blood Pressure 108/65 Pulse Oximetry 97 Oxygen Delivery Room Air 12/08/24 08:00 12/08/24 10:00 12/08/24 11:36 Temperature 98.2 F Pulse Rate 114 H 111 H 97 Respiratory Rate 20 Blood Pressure 114/40 L Pulse Oximetry 98 Oxygen Delivery 12/08/24 12:00 12/08/24 12:00 12/08/24 14:00 Temperature Pulse Rate 97 89 94 Respiratory Rate Blood Pressure Pulse Oximetry Oxygen Delivery Room Air 12/08/24 14:25 12/08/24 15:39 Temperature 99.8 F H Pulse Rate 86 Respiratory Rate 20 Blood Pressure 120/51 L Pulse Oximetry 100 Oxygen Delivery Room Air Intake/Output Intake/Output: Intake & Output 12/05/24 12/06/24 12/07/24 12/08/24 23:59 23:59 23:59 23:59 Intake Total 790 545 [id number] Output Total 0 Balance 790 683 [id number] Meds/Results Medications: Active Medications Generic Name Dose Route Start Last Admin Trade Name Freq PRN Reason Stop Dose Admin Acetaminophen 650 mg 12/05/24 14:50 Acetaminophen 325 Mg Tablet PO Q4H PRN Mild Pain (1-3) or Fever Hydrocodone Bitart/Acetaminophen 1 tab 12/05/24 14:52 12/08/24 08:48 Hydrocodone/Acetaminophen (*Crx) 10-325 Mg Tablet PO 1 tab Q8H PRN Administration Pain Rated 4-6 Apixaban 5 mg 12/07/24 09:00 12/08/24 08:48 Apixaban 5 Mg Tablet PO 5 mg BID DEANDRA Administration Bisacodyl 5 mg 12/05/24 14:50 Bisacodyl 5 Mg Tablet Ec PO DAILY PRN Constipation Cyclobenzaprine HCl 10 mg 12/05/24 14:52 Cyclobenzaprine Hcl 10 Mg Tablet PO Q8H PRN muscle spasm Diltiazem HCl 480 mg 12/06/24 09:00 12/08/24 08:48 Diltiazem Hcl Cd 240 Mg Cap.24hr PO 480 mg DAILY DEANDRA Administration Fentanyl 50 mcg 12/05/24 09:00 12/08/24 13:40 Fentanyl (*Crx) 50 Mcg Patch TRANSDERM Not Given Q72H DEANDRA Heparin Sodium (Beef Lung) 50 units 12/06/24 09:00 12/08/24 08:55 Heparin Flush 50 Units/5 Ml Syringe IV PUSH 50 units QAM DEANDRA Administration Heparin Sodium (Beef Lung) 50 units 12/06/24 02:44 Heparin Flush 50 Units/5 Ml Syringe IV PUSH PRN PRN after intermittent infusion Heparin Sodium (Beef Lung) 50 units 12/06/24 02:44 Heparin Flush 50 Units/5 Ml Syringe IV PUSH PRN PRN after blood draws Heparin Sodium (Porcine) 500 units 12/06/24 02:44 Heparin Sodium Lock Flush 500 Units/5 Ml Syringe IV PUSH PRN PRN see comments below Ceftriaxone Sodium 1 gm in 50 mls @ 100 mls/hr 12/05/24 22:40 12/07/24 20:58 Rocephin 1 Gm/Ns 50 Ml IVPB Infused HS DEANDRA Infusion Sodium Chloride 1,000 mls @ 100 mls/hr 12/07/24 16:10 12/08/24 13:40 Normal Saline Iv IV CONT Not Given .Q10H [facility] Losartan Potassium 50 mg 12/07/24 09:00 12/08/24 08:48 Losartan Potassium 50 Mg Tablet PO 50 mg DAILY DEANDRA Administration Metoprolol Tartrate 25 mg 12/08/24 21:00 Metoprolol Tartrate 25 Mg Tablet PO Q12HR [facility] Miscellaneous Information 1 each 12/05/24 00:01 12/08/24 04:13 Nonformulary Drug (Probenecid 500 Mg Tablet) Can Patient Use From Home? XX 01/04/25 00:00 Not Given CLARIFY [facility] Morphine Sulfate 2 mg 12/05/24 14:50 12/06/24 14:24 Morphine Sulfate (*Crx) 2 Mg/Ml Inj IV PUSH 2 mg Q4H PRN Administration Pain Rated 7-10 Naloxone HCl 0.1 mg 12/05/24 14:50 Naloxone Hcl 0.4 Mg/Ml Vial IV PUSH Q2M PRN Opiate Reversal Non-Formulary Medication 500 mg 12/05/24 17:15 Probenecid PO 01/04/25 17:14 Q12H [facility] Ondansetron HCl 4 mg 12/05/24 14:50 Ondansetron Inj 4 Mg/2 Ml Vial IV PUSH Q6H PRN Nausea And Vomiting Pantoprazole Sodium 40 mg 12/05/24 21:00 12/08/24 08:48 Pantoprazole 40 Mg Tablet PO 40 mg Q12HR DEANDRA Administration Perflutren Lipid Microsphere 0 ml 12/07/24 19:56 Perflutren Lipid Microspheres 1.5 Ml Vial Diluted To 10 Ml Total Volume IV PUSH 12/10/24 19:56 ONCE PRN adequate visualization Protocol Potassium Chloride 10 meq 12/06/24 09:00 12/08/24 08:48 Potassium Chloride 10 Meq Er Tablet PO 10 meq BID DEANDRA Administration Pyridostigmine Myra 60 mg 12/06/24 09:00 12/08/24 13:40 Pyridostigmine Myra 60 Mg Tablet PO 60 mg TID DEANDRA Administration Rosuvastatin Calcium 40 mg 12/06/24 09:00 12/08/24 08:48 Rosuvastatin 20 Mg Tablet PO 40 mg DAILY DEANDRA Administration Sodium Chloride 10 ml 12/06/24 06:00 12/08/24 13:41 Central Line Flush IV PUSH 10 ml Q8HR DEANDRA Administration Spironolactone 25 mg 12/05/24 18:00 12/08/24 06:16 Spironolactone 25 Mg Tablet PO 25 mg Q12H DEANDRA Administration Tamsulosin HCl 0.4 mg 12/05/24 15:25 12/08/24 08:48 Tamsulosin Hcl 0.4 Mg Capsule PO 0.4 mg QAM DEANDRA Administration Radiology Results: ITS Impressions Retrograde Pyelogram 12/06/24 12:25 IMPRESSION: 1. Placement of a left intraureteral stent which is in expected position. See procedure note for further detail. Abdomen X-Ray 12/06/24 15:28 IMPRESSION: 1. Stones in the left kidney and left ureteropelvic junction with left internal ureteral stent in expected position. Chest X-Ray 12/07/24 22:33 IMPRESSION: Small left-sided pleural effusion without focal infiltrate. Labs Labs: Laboratory Results - last 24 hr 12/08/24 06:23 WBC 21.1 H RBC 2.75 L Hgb 7.8 L Hct 24.8 L MCV 90.2 MCH 28.4 MCHC 31.5 L RDW 15.0 H Plt Count 234 MPV 9.6 Immature Gran % (Auto) 0.9 H Neut % (Auto) 86.1 H Lymph % (Auto) 5.4 L Graves % (Auto) 7.1 Eos % (Auto) 0.1 Baso % (Auto) 0.4 Lymph # (Auto) 1.15 Graves # (Auto) 1.5 H Eos # (Auto) 0.0 Baso # (Auto) 0.1 Abs Immat Gran (auto) 0.18 H Absolute Neuts (auto) 18.2 H Absolute Nucleated RBC 0.000 Nucleated RBC % 0.0 Sodium 131 L Potassium 3.9 Chloride 103 Carbon Dioxide 27 Anion Gap 1 L BUN 10 Creatinine 0.57 L Estim Creat Clear Calc 68 Estimated GFR > 60 Glucose 128 H Calcium 7.6 L Quality VTE Prophylaxis VTE prophylaxis: pharmacologic ordered Hospitalist MIPS Advance Care Plan I have confirmed that the patient's Advanced Care Plan is present, code status is documented, or surrogate decision maker is listed in patient medical record.: Yes Medication Reconciliation I have utilized all available resources to obtain, update and review the patients current medications (includes all prescriptions, OTC, herbals, cannabis, and nutritional supplements).: Yes
[2024-12-08] MEDS: fentaNYL (*CRX) 50 MCG PATCH TRANSDERM (19:20)
[2024-12-08] MEDS: ONDANSETRON INJ 4 MG/2 ML VIAL IV PUSH (20:14)
--- NOTE | 2024-12-08 20:30 | PM.EVENT ---
Event Note Event Note Event Note: Call the nursing for patient being in AFib with RVR and coarse lung sounds. On bedside exam patient has periorbital edema, bilateral rhonchi a rales, 2+ pitting edema. Chest x-ray reviewed at bedside appears to have pulmonary edema and pleural effusion. Forty of IV Lasix given. BiPAP p.r.n. Over 35 minutes critical care
[2024-12-08] MEDS: FUROSEMIDE INJ 40 MG/4 ML VIAL IV PUSH (20:51)
[2024-12-08] MEDS: METOPROLOL TARTRATE 25 MG TABLET PO (21:52)
--- NOTE | 2024-12-08 22:59 | ECG_ITS ---
Test Date: 2024-12-08 23:08:17 Measurements Intervals [place] Rate: 150 P: 0 MO: 0 QRS: -26 QRSD: 78 T: 23 QT: 259 QTc: 409 Interpretive Statements ATRIAL FLUTTER/TACHYCARDIA WITH RAPID VENTRICULAR RESPONSE BORDERLINE LEFT AXIS DEVIATION [QRS AXIS < -20] MINIMAL VOLTAGE CRITERIA FOR LVH, CONSIDER NORMAL VARIANT [MEETS CRITERIA IN ONE OF: R(aVL), S(V1), R(V5), R(V5/V6)+S(V1)] NONSPECIFIC ST & T-WAVE ABNORMALITY ABNORMAL RHYTHM ECG Compared to ECG 12/07/2024 15:29:45 T-wave abnormality now present Atrial fibrillation no longer present Electronically Signed On 12-09-2024 22:12:35 HOSPITAL SALES REPRESENTATIVE by Sushil Navas M.D.
[2024-12-08 23:54] LABS: Basophils Absolute Auto 0.1 K/mm3 (0.0-0.1); Basophils Percent Auto 0.4 % (0.2-1.2); Eosinophils Percent Auto 0.1 % (0-4.4); Hematocrit 25.9 % (37.0-47.0); Hemoglobin 8.1 g/dL (12.0-15.0); Immature Granulocyte Percent A 0.9 % (0-0.5); Lymphocytes Percent Auto 5.6 % (18.3-44.2); Mean Corpuscular HGB Conc 31.3 g/dl (32-36); Mean Corpuscular Hemoglobin 28.1 pg (26-34); Mean Corpuscular Volume 89.9 fl (80-100); Mean Platelet Volume 10.3 fl (7.4-10.4); Monocytes Absolute Auto 1.7 K/mm3 (0.1-0.6); Monocytes Percent Auto 7.3 % (2.6-8.5); Neutrophils Absolute Auto 19.8 K/mm3 (1.3-6.7); Neutrophils Percent Auto 85.7 % (45.5-73.1); Platelet Count Result 242 k/mm3 (150-375); Red Blood Count 2.88 M/mm3 (4.2-5.4); White Blood Count 23.1 K/mm3 (4.5-10.0)
[2024-12-09] VITALS (14 sets, daily range): BP systolic 60–127; BP diastolic 40–77; PULSE 71–156; RESP 16–24; TEMP 36.4–36.6; O2SAT 91–99
[2024-12-09 00:05] LABS: Anion Gap 3 mmol/L (4-12); Blood Urea Nitrogen 11 mg/dL (7-17); Calcium 7.5 mg/dL (8.4-10.2); Carbon Dioxide 26 mmol/L (22-30); Chloride 102 mmol/L (98-107); Estimated CRCL calculation 60 ml/min; Estimated Glomerular Filt Rate > 60; Glucose 161 mg/dL (65-110); Magnesium 1.1 mg/dL (1.6-2.3); Phosphorus 3.4 mg/dL (2.5-4.5); Potassium 3.9 mmol/L (3.4-5.0); Sodium 131 mmol/L (137-145)
[2024-12-09 00:06] LABS: Anisocytosis 1+; Hypochromasia 1+; Platelet Estimate Adequate (Adequate); Schistocytes None Seen
[2024-12-09 00:23] LABS: Troponin I 0.123 ng/mL (0.000-0.034)
[2024-12-09] MEDS: MAGNESIUM SULFATE 3GM/D5W100ML 3 GM/100 ML BAG IVPB (00:58)
[2024-12-09 04:18] LABS: Basophils Absolute Auto 0.1 K/mm3 (0.0-0.1); Basophils Percent Auto 0.4 % (0.2-1.2); Eosinophils Percent Auto 0.1 % (0-4.4); Hematocrit 24.6 % (37.0-47.0); Hemoglobin 7.8 g/dL (12.0-15.0); Immature Granulocyte Absolute 0.22 K/mm3 (0.00-0.031); Lymphocytes Absolute Auto 1.28 K/mm3 (0.9-3.2); Lymphocytes Percent Auto 5.7 % (18.3-44.2); Mean Corpuscular HGB Conc 31.7 g/dl (32-36); Mean Corpuscular Hemoglobin 28.6 pg (26-34); Mean Corpuscular Volume 90.1 fl (80-100); Mean Platelet Volume 10.1 fl (7.4-10.4); Monocytes Absolute Auto 1.7 K/mm3 (0.1-0.6); Monocytes Percent Auto 7.3 % (2.6-8.5); Neutrophils Absolute Auto 19.3 K/mm3 (1.3-6.7); Neutrophils Percent Auto 85.5 % (45.5-73.1); Platelet Count Result 233 k/mm3 (150-375); Red Blood Count 2.73 M/mm3 (4.2-5.4); Red Cell Distribution Width 15.2 % (11.5-14.5); White Blood Count 22.5 K/mm3 (4.5-10.0)
[2024-12-09 04:27] LABS: Anion Gap 4 mmol/L (4-12); Blood Urea Nitrogen 11 mg/dL (7-17); Calcium 7.4 mg/dL (8.4-10.2); Carbon Dioxide 25 mmol/L (22-30); Chloride 101 mmol/L (98-107); Estimated CRCL calculation 62 ml/min; Estimated Glomerular Filt Rate > 60; Glucose 163 mg/dL (65-110); Potassium 3.9 mmol/L (3.4-5.0); Sodium 130 mmol/L (137-145)
[2024-12-09] MEDS: CENTRAL LINE FLUSH 10 ML IV PUSH ×2 (05:25→13:23)
[2024-12-09] MEDS: SPIRONOLACTONE 25 MG TABLET PO (05:25)
[2024-12-09] MEDS: WATER FOR IRRIGATION, STERILE 500 ML BOTTLE (06:35)
[2024-12-09] MEDS: HYDROcodone/acetaminophen (*CRX) 10-325 MG TABLET 1 TAB PO (09:06)
[2024-12-09] MEDS: ROSUVASTATIN 20 MG TABLET 40 MG PO (09:07)
[2024-12-09] MEDS: TAMSULOSIN HCL 0.4 MG CAPSULE PO (09:07)
[2024-12-09] MEDS: POTASSIUM CHLORIDE 10 MEQ ER TABLET PO (09:07)
[2024-12-09] MEDS: pyRIDostigmine bromide 60 MG TABLET PO ×2 (09:07→13:23)
[2024-12-09] MEDS: dilTIAZem HCL CD 240 MG CAP.24HR 480 MG PO (09:08)
[2024-12-09] MEDS: METOPROLOL TARTRATE 25 MG TABLET PO (09:08)
[2024-12-09] MEDS: LOSARTAN POTASSIUM 50 MG TABLET PO (09:08)
[2024-12-09] MEDS: PANTOPRAZOLE 40 MG TABLET PO (09:08)
[2024-12-09] MEDS: APIXABAN 5 MG TABLET PO (09:08)
[2024-12-09] MEDS: MORPHINE SULFATE (*CRX) 2 MG/ML INJ IV PUSH ×2 (10:52→15:04)
[2024-12-09] MEDS: HEPARIN SOD/D5W 100 UNITS/ML 25,000 UNITS/250 ML BAG 12 UNITS IV CONT (12:20)
--- NOTE | 2024-12-09 12:43 | PM.IMPN ---
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 - Patient needs vascular surgery eval and possible intervention; none at this facility. - [facility] and [facility] hospital transfer centers called. - Patient needs ICU bed per vascular surgeon's who could take pt but difficult to find ICU bed on a lot of hospitals. - Will keep f/u with transfer centers. - Patient started on Heparin drip. - Continue to monitor for acute changed. (2) Sepsis: Qualifiers: Sepsis type: sepsis due to unspecified organism Sepsis acute organ dysfunction status: without acute organ dysfunction Qualified Code(s): A41.9 - Sepsis, unspecified organism Code(s): A41.9 - Sepsis, unspecified organism Status: Acute Assessment and Plan: - meets SIRS criteria on admission: HR, WBC, Lactic acidosis. - suspected source: UTI - lactic acid: 5.5 -> 1.5 - repeat lactic wnl, procalcitonin 0.2 - given 2 L bolus at outside hospital - blood cultures drawn on 12/04 at outside hospital growing an Enterococcus faecalis. -urine culture growing Proteus mirabilis. -Started on Levaquin for UTI per sensitivities with PCN allergy. -Started on Vancomycin for Enterococcus Faecalis; both started 12/09. -Ceftriaxone discontinued. (3) UTI (urinary tract infection): Qualifiers: Urinary tract infection type: acute cystitis Hematuria presence: with hematuria Qualified Code(s): N30.01 - Acute cystitis with hematuria Code(s): N39.0 - Urinary tract infection, site not specified Status: Acute Assessment and Plan: - UA: Small bilirubin, trace ketones, small leukocytes, TNTC WBC, 20-30 RBC, 1+ bacteria, 0-2 epithelial cells. - UC growing Proteus mirabilis. - Ceftriaxone started on 12/05 and discontinued 12/09. - Started on Levaquin 12/09. - Eliquis held at outside hospital due to hematuria, - Ureteral stent placed and Eliquis restarted. (4) Hydronephrosis concurrent with and due to calculi of kidney and ureter: Code(s): N13.2 - Hydronephrosis with renal and ureteral calculous obstruction Status: Acute Assessment and Plan: - CT chest/abd/pelvis: 1. Mild thickening of the transverse colon with mild edema in the mesentery adjacent to the colon near the anastomosis. It may be postoperative given recent surgery. No abscess. 2. A 5 mm stone in the left ureteropelvic junction with mild left hydronephrosis 3. Mild free fluid in the pelvis. - Urology consulted; - s/p Cystoscopy, left retrograde pyelography, left ureteral stent placement. - Started on Flomax 0.4 mg daily. - Further mgt per urologist outpatient. (5) Atrial fibrillation with rapid ventricular response: Code(s): I48.91 - Unspecified atrial fibrillation Status: Acute Assessment and Plan: -patient with 2 episodes of AFib RVR, mainly due to inactivity. -Seen by cardiology. -patient started on metoprolol 25 mg mid day. -Rate currently remains well controlled on telemetry monitoring. -monitor it closely with activity. (6) Generalized muscle weakness: Code(s): M62.81 - Muscle weakness (generalized) Status: Acute Assessment and Plan: -likely from advanced age and worsened by prolonged bedrest. -PT/OT have bile and treatment. -Fall precautions. -monitor and assist with care. (7) CKD (chronic kidney disease): Qualifiers: Chronic kidney disease stage: unspecified stage Qualified Code(s): N18.9 - Chronic kidney disease, unspecified Code(s): N18.9 - Chronic kidney disease, unspecified Status: Acute Assessment and Plan: - Possibly affected by hydronephrosis. -kidney function currently appears baseline. -Patient with good p.o. intake and IVF discontinued. -continue to encourage p.o. fluids. (8) Hypertension: Qualifiers: Hypertension type: primary hypertension Qualified Code(s): I10 - Essential (primary) hypertension Code(s): I10 - Essential (primary) hypertension Status: Acute Assessment and Plan: - chronic, - BP readings reviewed. - Previously trending normal high. - losartan dose increased 25>>50 mg daily. - currently remains well controlled. - continue spironolactone 25 mg b.i.d. - continue to monitor and adjust meds as needed. Plan Diet: Heart Healthy GI Prophylaxis: Not currently indicated DVT Prophylaxis: SCDs, Eliquis Lines: Peripheral Code Status: full code Subjective Date/time seen: 12/09/24 10:30 Patient states she has weakness, numbness and pain to bilateral lower extremities. Reports the symptoms started about 8:00 a.m. this morning. Interval history: Patient on bedrest and looks to be in some moderate distress with pain. 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 Transfer Center called and awaiting response. Review of Systems Review of Systems: All systems reviewed & are unremarkable except as noted in HPI and below Exam Narrative: General: Fair appearing, no acute distress. HEENT: Atraumatic, PERRL, EOMI, moist mucosa. NECK: Supple. Lungs: Clear bilaterally. Heart: Irregularly irregular, no murmurs. Abdomen: Soft, non-tender, non-distended, +ve BS X4 Quadrants. Extremities: Acyanotic, no edema, no pedal pulses, including with dopplers. Reporting reji. LE numbness and unable to move reji. feet. Skin: No lesions noted. Reji. LE cool and pale. Neuro: Fairly well oriented. CN II-XII grossly intact. Psych: Pleasant and co-operative. Objective Data Vital Signs Vital Signs: Vital Signs - 24 hr 12/08/24 14:00 12/08/24 14:25 12/08/24 15:39 Temperature 99.8 F H Pulse Rate 94 86 Respiratory Rate 20 Blood Pressure 120/51 L Pulse Oximetry 100 Oxygen Delivery Room Air Oxygen Flow Rate 12/08/24 16:00 12/08/24 16:00 12/08/24 18:00 Temperature Pulse Rate 91 101 H Respiratory Rate Blood Pressure Pulse Oximetry Oxygen Delivery Room Air Oxygen Flow Rate 12/08/24 20:00 12/08/24 20:00 12/08/24 20:00 Temperature 97.8 F Pulse Rate 119 H 74 Respiratory Rate 22 H Blood Pressure 145/93 H Pulse Oximetry 100 100 Oxygen Delivery Nasal Cannula Oxygen Flow Rate 2 12/08/24 21:52 12/08/24 22:00 12/08/24 22:40 Temperature Pulse Rate 123 H 113 H 107 H Respiratory Rate 21 H Blood Pressure Pulse Oximetry 99 Oxygen Delivery Autopap Oxygen Flow Rate 12/09/24 00:00 12/09/24 00:00 12/09/24 00:00 Temperature 97.8 F Pulse Rate 104 H 80 Respiratory Rate 18 Blood Pressure 112/57 L Pulse Oximetry 99 Oxygen Delivery CPAP Oxygen Flow Rate 12/09/24 02:00 12/09/24 04:00 12/09/24 04:00 Temperature 97.9 F Pulse Rate 89 75 Respiratory Rate 18 Blood Pressure 127/49 L Pulse Oximetry 97 Oxygen Delivery CPAP Oxygen Flow Rate 12/09/24 04:00 12/09/24 06:00 12/09/24 08:00 Temperature Pulse Rate 78 81 156 H Respiratory Rate 24 H Blood Pressure 118/77 Pulse Oximetry 91 Oxygen Delivery Oxygen Flow Rate 12/09/24 09:08 12/09/24 11:55 Temperature 97.9 F Pulse Rate 121 H 129 H Respiratory Rate 16 Blood Pressure 103/43 L Pulse Oximetry 94 Oxygen Delivery Oxygen Flow Rate Intake/Output Intake/Output: Intake & Output 12/06/24 12/07/24 12/08/24 12/09/24 23:59 23:59 23:59 23:59 Intake Total 341 083 8195 650 Output Total 0 650 Balance 843 013 4451 0 Meds/Results Medications: Active Medications Generic Name Dose Route Start Last Admin Trade Name Freq PRN Reason Stop Dose Admin Acetaminophen 650 mg 12/05/24 14:50 Acetaminophen 325 Mg Tablet PO Q4H PRN Mild Pain (1-3) or Fever Hydrocodone Bitart/Acetaminophen 1 tab 12/05/24 14:52 12/09/24 09:06 Hydrocodone/Acetaminophen (*Crx) 10-325 Mg Tablet PO 1 tab Q8H PRN Administration Pain Rated 4-6 Apixaban 5 mg 12/07/24 09:00 12/09/24 09:08 Apixaban 5 Mg Tablet PO 5 mg BID DEANDRA Administration Bisacodyl 5 mg 12/05/24 14:50 Bisacodyl 5 Mg Tablet Ec PO DAILY PRN Constipation Cyclobenzaprine HCl 10 mg 12/05/24 14:52 Cyclobenzaprine Hcl 10 Mg Tablet PO Q8H PRN muscle spasm Diltiazem HCl 480 mg 12/06/24 09:00 12/09/24 09:08 Diltiazem Hcl Cd 240 Mg Cap.24hr PO 480 mg DAILY DEANDRA Administration Fentanyl 50 mcg 12/05/24 09:00 12/08/24 19:20 Fentanyl (*Crx) 50 Mcg Patch TRANSDERM 50 mcg Q72H DEANDRA Administration Heparin Sodium (Beef Lung) 50 units 12/06/24 09:00 12/09/24 09:08 Heparin Flush 50 Units/5 Ml Syringe IV PUSH 50 units QAM DEANDRA Administration Heparin Sodium (Beef Lung) 50 units 12/06/24 02:44 Heparin Flush 50 Units/5 Ml Syringe IV PUSH PRN PRN after intermittent infusion Heparin Sodium (Beef Lung) 50 units 12/06/24 02:44 Heparin Flush 50 Units/5 Ml Syringe IV PUSH PRN PRN after blood draws Heparin Sodium (Porcine) 500 units 12/06/24 02:44 Heparin Sodium Lock Flush 500 Units/5 Ml Syringe IV PUSH PRN PRN see comments below Heparin Sodium (Porcine) 5,500 units 12/09/24 11:30 Heparin Sodium 5,000 Units/Ml Vial IV PUSH PRN PRN aPTT less than 55 seconds Heparin Sodium (Porcine) 2,500 units 12/09/24 11:30 Heparin Sodium 5,000 Units/Ml Vial IV PUSH PRN PRN aPTT 55 - 70 seconds Levofloxacin/Dextrose 500 mg in 100 mls @ 100 mls/hr 12/09/24 12:00 Levaquin 500 Mg/D5w 100 Ml IVPB Q24H DEANDRA Heparin Sodium/Dextrose 25,000 units in 250 mls @ 12 mls/hr 12/09/24 11:45 12/09/24 12:20 Heparin Sodium/D5w 100 Units/Ml IV CONT 1,200 units/hr .[id number] DEANDRA 12 mls/hr Administration Protocol 1,200 UNITS/HR Vancomycin HCl 1,000 mg in 250 mls @ 250 mls/hr 12/09/24 13:30 Vancomycin 1,000 Mg/Ns 250 Ml IVPB 12/09/24 14:29 ONCE ONE Vancomycin HCl 1,250 mg in 250 mls @ 166.667 mls/hr 12/09/24 12:00 Vancomycin 1,250 Mg/Ns 250 Ml IVPB 12/09/24 13:29 ONCE ONE Losartan Potassium 50 mg 12/07/24 09:00 12/09/24 09:08 Losartan Potassium 50 Mg Tablet PO 50 mg DAILY DEANDRA Administration Metoprolol Tartrate 25 mg 12/08/24 21:00 12/09/24 09:08 Metoprolol Tartrate 25 Mg Tablet PO 25 mg Q12HR DEANDRA Administration Miscellaneous Information 1 each 12/05/24 00:01 12/09/24 06:35 Nonformulary Drug (Probenecid 500 Mg Tablet) Can Patient Use From Home? XX 01/04/25 00:00 Not Given CLARIFY DEANDRA Morphine Sulfate 2 mg 12/05/24 14:50 12/09/24 10:52 Morphine Sulfate (*Crx) 2 Mg/Ml Inj IV PUSH 2 mg Q4H PRN Administration Pain Rated 7-10 Naloxone HCl 0.1 mg 12/05/24 14:50 Naloxone Hcl 0.4 Mg/Ml Vial IV PUSH Q2M PRN Opiate Reversal Non-Formulary Medication 500 mg 12/05/24 17:15 Probenecid PO 01/04/25 17:14 Q12H DEANDRA Ondansetron HCl 4 mg 12/05/24 14:50 12/08/24 20:14 Ondansetron Inj 4 Mg/2 Ml Vial IV PUSH 4 mg Q6H PRN Administration Nausea And Vomiting Pantoprazole Sodium 40 mg 12/05/24 21:00 12/09/24 09:08 Pantoprazole 40 Mg Tablet PO 40 mg Q12HR DEANDRA Administration Perflutren Lipid Microsphere 0 ml 12/07/24 19:56 Perflutren Lipid Microspheres 1.5 Ml Vial Diluted To 10 Ml Total Volume IV PUSH 12/10/24 19:56 ONCE PRN adequate visualization Protocol Potassium Chloride 10 meq 12/06/24 09:00 12/09/24 09:07 Potassium Chloride 10 Meq Er Tablet PO 10 meq BID DEANDRA Administration Pyridostigmine [place] 60 mg 12/06/24 09:00 12/09/24 09:07 Pyridostigmine [place] 60 Mg Tablet PO 60 mg TID DEANDRA Administration Rosuvastatin Calcium 40 mg 12/06/24 09:00 12/09/24 09:07 Rosuvastatin 20 Mg Tablet PO 40 mg DAILY DEANDRA Administration Sodium Chloride 10 ml 12/06/24 06:00 12/09/24 05:25 Central Line Flush IV PUSH 10 ml Q8HR DEANDRA Administration Spironolactone 25 mg 12/05/24 18:00 12/09/24 05:25 Spironolactone 25 Mg Tablet PO 25 mg Q12H DEANDRA Administration Tamsulosin HCl 0.4 mg 12/05/24 15:25 12/09/24 09:07 Tamsulosin Hcl 0.4 Mg Capsule PO 0.4 mg QAM DEANDRA Administration Radiology Results: ITS Impressions Retrograde Pyelogram 12/06/24 12:25 IMPRESSION: 1. Placement of a left intraureteral stent which is in expected position. See procedure note for further detail. Abdomen X-Ray 12/06/24 15:28 IMPRESSION: 1. Stones in the left kidney and left ureteropelvic junction with left internal ureteral stent in expected position. Chest X-Ray 12/09/24 07:16 Impression: Right-sided Mediport. Possible minimal effusions. Cardiomegaly with aortic valve replacement. 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 There is reconstitution of the bilateral common iliac arteries just proximal to the bifurcations. Prior imaging/visualization of the mid to distal anterior tibial and peroneal arteries bilaterally, which could be due to relatively poor distal flow versus multifocal atherosclerotic disease. Small splenic infarct, new since prior exam. Small to moderate bilateral pleural effusions. Left ureteral stent. Numerous small pericardial effusion. Labs Labs: Laboratory Results - last 24 hr 12/08/24 12/09/24 23:48 04:13 WBC 23.1 H 22.5 H RBC 2.88 L 2.73 L Hgb 8.1 L 7.8 L Hct 25.9 L 24.6 L MCV 89.9 90.1 MCH 28.1 28.6 MCHC 31.3 L 31.7 L RDW 15.0 H 15.2 H Plt Count 242 233 MPV 10.3 10.1 Immature Gran % (Auto) 0.9 H 1.0 H Neut % (Auto) 85.7 H 85.5 H Lymph % (Auto) 5.6 L 5.7 L [place] % (Auto) 7.3 7.3 Eos % (Auto) 0.1 0.1 Baso % (Auto) 0.4 0.4 Lymph # (Auto) 1.30 1.28 [place] # (Auto) 1.7 H 1.7 H Eos # (Auto) 0.0 0.0 Baso # (Auto) 0.1 0.1 Abs Immat Gran (auto) 0.20 H 0.22 H Absolute Neuts (auto) 19.8 H 19.3 H Absolute Nucleated RBC 0.000 0.000 Nucleated RBC % 0.0 0.0 Platelet Estimate Adequate Hypochromasia 1+ Anisocytosis 1+ Schistocytes None seen Sodium 131 L 130 L Potassium 3.9 3.9 Chloride 102 101 Carbon Dioxide 26 25 Anion Gap 3 L 4 BUN 11 11 Creatinine 0.66 L 0.63 L Estim Creat Clear Calc 60 62 Estimated GFR > 60 > 60 Glucose 161 H 163 H Calcium 7.5 L 7.4 L Phosphorus 3.4 Magnesium 1.1 L Troponin I 0.123 H* Quality VTE Prophylaxis VTE prophylaxis: pharmacologic ordered Hospitalist MIPS Advance Care Plan I have confirmed that the patient's Advanced Care Plan is present, code status is documented, or surrogate decision maker is listed in patient medical record.: Yes Medication Reconciliation I have utilized all available resources to obtain, update and review the patients current medications (includes all prescriptions, OTC, herbals, cannabis, and nutritional supplements).: Yes
--- NOTE | 2024-12-09 12:50 | PC.NURSE ---
This patient, Kallie Calderon, was transferred to [facility] on 12/09/24 at 1243. Personal belongings sent with patient. Report given to Penelope HUNTER at 1235. Appropriate documentation sent with patient. Family at bedside.
--- NOTE | 2024-12-09 13:25 | PCPTNOTE ---
HOLD PT---pt diagnosis with aortic occlusion.
--- NOTE | 2024-12-09 13:47 | PM.PNCARD ---
Progress Note: A&P Assessment and Plan (1) Atrial fibrillation with rapid ventricular response: Code(s): I48.91 - Unspecified atrial fibrillation Status: Acute (2) Occlusion of terminal aorta: Code(s): I74.09 - Other arterial embolism and thrombosis of abdominal aorta Status: Acute (3) Hydronephrosis concurrent with and due to calculi of kidney and ureter: Code(s): N13.2 - Hydronephrosis with renal and ureteral calculous obstruction Status: Acute (4) Left ureteral stone: Code(s): N20.1 - Calculus of ureter Status: Acute (5) UTI (urinary tract infection): Qualifiers: Urinary tract infection type: acute cystitis Hematuria presence: with hematuria Qualified Code(s): N30.01 - Acute cystitis with hematuria Code(s): N39.0 - Urinary tract infection, site not specified Status: Acute (6) CKD (chronic kidney disease): Qualifiers: Chronic kidney disease stage: unspecified stage Qualified Code(s): N18.9 - Chronic kidney disease, unspecified Code(s): N18.9 - Chronic kidney disease, unspecified Status: Acute (7) Hypertension: Qualifiers: Hypertension type: primary hypertension Qualified Code(s): I10 - Essential (primary) hypertension Code(s): I10 - Essential (primary) hypertension Status: Acute Plan Assessment: AFib with RVR-rates in the 140s at rest this morning most likely due to severe back pain Hypertension Hyperlipidemia 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 b.i.d. for rate control. Can increase dose to 50 mg p.o. b.i.d. if blood pressure and heart rates allow. Hold metoprolol for heart rate less than 50 and/or SBP less than 90 Continue diltiazem 480 mg p.o. daily. This is her home medication She was started on heparin for occluded infrarenal abdominal aorta. Hold Eliquis while patient is on therapeutic heparin and resume when heparin is discontinued Continue statin Continue spironolactone Continue losartan Check and replace electrolytes to keep potassium more than 4 and magnesium more than 2 Subjective Date/time seen: 12/09/24 13:47 Interval history: Reason For Visit: Kidney Stone Relevant history: 79-year-old female with hypertension, hyperlipidemia, atrial fibrillation on chronic anticoagulation, COPD, myasthenia gravis, osteoarthritis, anemia, CKD, renal stone, recent hospitalization and bowel surgery for intussusception is admitted with sepsis secondary to UTI, renal stone and treated with antibiotics. CT showed a 5 mm stone in the left ureteropelvic junction with mild left hydronephrosis and underwent cystoscopy, left retrograde pyelography, and left ureteral stent placement by Urology. She was noted to have RVR and Cardiology is consulted for management of atrial fibrillation with RVR. EKG showed AFib with RVR with rate of 109. She is also noted to have obstruction of her terminal aorta requiring vascular and transfers to a higher facility has been initiated by primary team. Interval history: Patient reports off and on palpitations. No chest pain, shortness of breath, dizziness, nausea, abdominal pain. She is in severe back pain and wants something to control her pain. Review of Systems Review of Systems: A complete review of systems was performed and negative other than those mentioned in HPI Exam Narrative: General: Alert oriented x3, complains of severe back Neck: Supple, no JVD Chest: Bilaterally clear to auscultation, no rales or rhonchi Cardiac: S1, S2 +, irregularly irregular, no murmurs or rubs Extremities: No pedal edema, no skin rash Neurologic: Alert and oriented x3, no focal neurological deficits Objective Data Vital Signs Vital Signs: Vital Signs - 24 hr 12/08/24 14:00 12/08/24 14:25 12/08/24 15:39 Temperature 37.7 C H Pulse Rate 94 86 Respiratory Rate 20 Blood Pressure 120/51 L Pulse Oximetry 100 Oxygen Delivery Room Air Oxygen Flow Rate 12/08/24 16:00 12/08/24 16:00 12/08/24 18:00 Temperature Pulse Rate 91 101 H Respiratory Rate Blood Pressure Pulse Oximetry Oxygen Delivery Room Air Oxygen Flow Rate 12/08/24 20:00 12/08/24 20:00 12/08/24 20:00 Temperature 36.6 C Pulse Rate 119 H 74 Respiratory Rate 22 H Blood Pressure 145/93 H Pulse Oximetry 100 100 Oxygen Delivery Nasal Cannula Oxygen Flow Rate 2 12/08/24 21:52 12/08/24 22:00 12/08/24 22:40 Temperature Pulse Rate 123 H 113 H 107 H Respiratory Rate 21 H Blood Pressure Pulse Oximetry 99 Oxygen Delivery Autopap Oxygen Flow Rate 12/09/24 00:00 12/09/24 00:00 12/09/24 00:00 Temperature 36.6 C Pulse Rate 104 H 80 Respiratory Rate 18 Blood Pressure 112/57 L Pulse Oximetry 99 Oxygen Delivery CPAP Oxygen Flow Rate 12/09/24 02:00 12/09/24 04:00 12/09/24 04:00 Temperature 36.6 C Pulse Rate 89 75 Respiratory Rate 18 Blood Pressure 127/49 L Pulse Oximetry 97 Oxygen Delivery CPAP Oxygen Flow Rate 12/09/24 04:00 12/09/24 06:00 12/09/24 08:00 Temperature Pulse Rate 78 81 156 H Respiratory Rate 24 H Blood Pressure 118/77 Pulse Oximetry 91 Oxygen Delivery Oxygen Flow Rate 12/09/24 08:00 12/09/24 09:08 12/09/24 10:00 Temperature Pulse Rate 101 H 121 H 145 H Respiratory Rate Blood Pressure Pulse Oximetry Oxygen Delivery Oxygen Flow Rate 12/09/24 11:55 Temperature 36.6 C Pulse Rate 129 H Respiratory Rate 16 Blood Pressure 103/43 L Pulse Oximetry 94 Oxygen Delivery Oxygen Flow Rate Intake/Output Intake/Output: Intake & Output 12/06/24 12/07/24 12/08/24 12/09/24 23:59 23:59 23:59 23:59 Intake Total 344 824 5314 650 Output Total 0 650 Balance 811 441 5723 0 Meds/Results Medications: Active Medications Generic Name Dose Route Start Last Admin Trade Name Freq PRN Reason Stop Dose Admin Acetaminophen 650 mg 12/05/24 14:50 Acetaminophen 325 Mg Tablet PO Q4H PRN Mild Pain (1-3) or Fever Hydrocodone Bitart/Acetaminophen 1 tab 12/05/24 14:52 12/09/24 09:06 Hydrocodone/Acetaminophen (*Crx) 10-325 Mg Tablet PO 1 tab Q8H PRN Administration Pain Rated 4-6 Apixaban 5 mg 12/07/24 09:00 12/09/24 09:08 Apixaban 5 Mg Tablet PO 5 mg BID DEANDRA Administration Bisacodyl 5 mg 12/05/24 14:50 Bisacodyl 5 Mg Tablet Ec PO DAILY PRN Constipation Cyclobenzaprine HCl 10 mg 12/05/24 14:52 Cyclobenzaprine Hcl 10 Mg Tablet PO Q8H PRN muscle spasm Diltiazem HCl 480 mg 12/06/24 09:00 12/09/24 09:08 Diltiazem Hcl Cd 240 Mg Cap.24hr PO 480 mg DAILY DEANDRA Administration Fentanyl 50 mcg 12/05/24 09:00 12/08/24 19:20 Fentanyl (*Crx) 50 Mcg Patch TRANSDERM 50 mcg Q72H DEANDRA Administration Heparin Sodium (Beef Lung) 50 units 12/06/24 09:00 12/09/24 09:08 Heparin Flush 50 Units/5 Ml Syringe IV PUSH 50 units QAM DEANDRA Administration Heparin Sodium (Beef Lung) 50 units 12/06/24 02:44 Heparin Flush 50 Units/5 Ml Syringe IV PUSH PRN PRN after intermittent infusion Heparin Sodium (Beef Lung) 50 units 12/06/24 02:44 Heparin Flush 50 Units/5 Ml Syringe IV PUSH PRN PRN after blood draws Heparin Sodium (Porcine) 500 units 12/06/24 02:44 Heparin Sodium Lock Flush 500 Units/5 Ml Syringe IV PUSH PRN PRN see comments below Heparin Sodium (Porcine) 5,500 units 12/09/24 11:30 Heparin Sodium 5,000 Units/Ml Vial IV PUSH PRN PRN aPTT less than 55 seconds Heparin Sodium (Porcine) 2,500 units 12/09/24 11:30 Heparin Sodium 5,000 Units/Ml Vial IV PUSH PRN PRN aPTT 55 - 70 seconds Levofloxacin/Dextrose 500 mg in 100 mls @ 100 mls/hr 12/09/24 12:00 Levaquin 500 Mg/D5w 100 Ml IVPB Q24H DEANDRA Heparin Sodium/Dextrose 25,000 units in 250 mls @ 12 mls/hr 12/09/24 11:45 12/09/24 12:20 Heparin Sodium/D5w 100 Units/Ml IV CONT 1,200 units/hr .[id number] DEANDRA 12 mls/hr Administration Protocol 1,200 UNITS/HR Vancomycin HCl 1,000 mg in 250 mls @ 250 mls/hr 12/09/24 13:30 Vancomycin 1,000 Mg/Ns 250 Ml IVPB 12/09/24 14:29 ONCE ONE Losartan Potassium 50 mg 12/07/24 09:00 12/09/24 09:08 Losartan Potassium 50 Mg Tablet PO 50 mg DAILY DEANDRA Administration Metoprolol Tartrate 25 mg 12/08/24 21:00 12/09/24 09:08 Metoprolol Tartrate 25 Mg Tablet PO 25 mg Q12HR DEANDRA Administration Miscellaneous Information 1 each 12/05/24 00:01 12/09/24 06:35 Nonformulary Drug (Probenecid 500 Mg Tablet) Can Patient Use From Home? XX 01/04/25 00:00 Not Given CLARIFY DEANDRA Morphine Sulfate 2 mg 12/05/24 14:50 12/09/24 10:52 Morphine Sulfate (*Crx) 2 Mg/Ml Inj IV PUSH 2 mg Q4H PRN Administration Pain Rated 7-10 Naloxone HCl 0.1 mg 12/05/24 14:50 Naloxone Hcl 0.4 Mg/Ml Vial IV PUSH Q2M PRN Opiate Reversal Non-Formulary Medication 500 mg 12/05/24 17:15 Probenecid PO 01/04/25 17:14 Q12H DEANDRA Ondansetron HCl 4 mg 12/05/24 14:50 12/08/24 20:14 Ondansetron Inj 4 Mg/2 Ml Vial IV PUSH 4 mg Q6H PRN Administration Nausea And Vomiting Pantoprazole Sodium 40 mg 12/05/24 21:00 12/09/24 09:08 Pantoprazole 40 Mg Tablet PO 40 mg Q12HR DEANDRA Administration Perflutren Lipid Microsphere 0 ml 12/07/24 19:56 Perflutren Lipid Microspheres 1.5 Ml Vial Diluted To 10 Ml Total Volume IV PUSH 12/10/24 19:56 ONCE PRN adequate visualization Protocol Potassium Chloride 10 meq 12/06/24 09:00 12/09/24 09:07 Potassium Chloride 10 Meq Er Tablet PO 10 meq BID DEANDRA Administration Pyridostigmine [place] 60 mg 12/06/24 09:00 12/09/24 13:23 Pyridostigmine [place] 60 Mg Tablet PO 60 mg TID DEANDRA Administration Rosuvastatin Calcium 40 mg 12/06/24 09:00 12/09/24 09:07 Rosuvastatin 20 Mg Tablet PO 40 mg DAILY DEANDRA Administration Sodium Chloride 10 ml 12/06/24 06:00 12/09/24 13:23 Central Line Flush IV PUSH 10 ml Q8HR DEANDRA Administration Spironolactone 25 mg 12/05/24 18:00 12/09/24 05:25 Spironolactone 25 Mg Tablet PO 25 mg Q12H DEANDRA Administration Tamsulosin HCl 0.4 mg 12/05/24 15:25 12/09/24 09:07 Tamsulosin Hcl 0.4 Mg Capsule PO 0.4 mg QAM DEANDRA Administration Radiology Results: ITS Impressions Retrograde Pyelogram 12/06/24 12:25 IMPRESSION: 1. Placement of a left intraureteral stent which is in expected position. See procedure note for further detail. Abdomen X-Ray 12/06/24 15:28 IMPRESSION: 1. Stones in the left kidney and left ureteropelvic junction with left internal ureteral stent in expected position. Chest X-Ray 12/09/24 07:16 Impression: Right-sided Mediport. Possible minimal effusions. Cardiomegaly with aortic valve replacement. 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 There is reconstitution of the bilateral common iliac arteries just proximal to the bifurcations. Prior imaging/visualization of the mid to distal anterior tibial and peroneal arteries bilaterally, which could be due to relatively poor distal flow versus multifocal atherosclerotic disease. Small splenic infarct, new since prior exam. Small to moderate bilateral pleural effusions. Left ureteral stent. Numerous small pericardial effusion. Labs Labs: Laboratory Results - last 24 hr 12/08/24 12/09/24 23:48 04:13 WBC 23.1 H 22.5 H RBC 2.88 L 2.73 L Hgb 8.1 L 7.8 L Hct 25.9 L 24.6 L MCV 89.9 90.1 MCH 28.1 28.6 MCHC 31.3 L 31.7 L RDW 15.0 H 15.2 H Plt Count 242 233 MPV 10.3 10.1 Immature Gran % (Auto) 0.9 H 1.0 H Neut % (Auto) 85.7 H 85.5 H Lymph % (Auto) 5.6 L 5.7 L [place] % (Auto) 7.3 7.3 Eos % (Auto) 0.1 0.1 Baso % (Auto) 0.4 0.4 Lymph # (Auto) 1.30 1.28 [place] # (Auto) 1.7 H 1.7 H Eos # (Auto) 0.0 0.0 Baso # (Auto) 0.1 0.1 Abs Immat Gran (auto) 0.20 H 0.22 H Absolute Neuts (auto) 19.8 H 19.3 H Absolute Nucleated RBC 0.000 0.000 Nucleated RBC % 0.0 0.0 Platelet Estimate Adequate Hypochromasia 1+ Anisocytosis 1+ Schistocytes None seen Sodium 131 L 130 L Potassium 3.9 3.9 Chloride 102 101 Carbon Dioxide 26 25 Anion Gap 3 L 4 BUN 11 11 Creatinine 0.66 L 0.63 L Estim Creat Clear Calc 60 62 Estimated GFR > 60 > 60 Glucose 161 H 163 H Calcium 7.5 L 7.4 L Phosphorus 3.4 Magnesium 1.1 L Troponin I 0.123 H*
--- NOTE | 2024-12-09 14:05 | P.TS_ITS ---
Transfer Discharge Sum: Prov Provider Date of admission: 12/06/24 15:40 Primary care physician: UNKNOWN,DOCTOR Admitting clinician: Marybeth Delacruz MD Consults: 12/05/24 Consult to Physician Routine Comment: Spoke with office @[id number] 12/05 [facility] [place] Provider: Angelina Reese call center representative/MD group to consult: Urology Reason for consultation: Kidney stone with hydronephrosis Has provider been notified: Yes 12/07/24 Consult to Physician Routine Comment: Consulting Provider: Shayan Armenta call center representative/MD group to consult: cards Reason for consultation: A fib rvr Has provider been notified: Yes Receiving physician/facility: [facility] DS: Admitting Diagnosis Discharge Date 12/09/24 Admitting Diagnosis Hematuria DS: Discharge Diagnosis Discharge Diagnosis (1) Occlusion of terminal aorta: Code(s): 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 - Other arterial embolism and thrombosis of abdominal aorta Status: Acute Assessment and Plan: Acute (2) Sepsis: Qualifiers: Sepsis acute organ dysfunction status: without acute organ dysfunction Sepsis type: sepsis due to unspecified organism Qualified Code(s): A41.9 - Sepsis, unspecified organism Code(s): A41.9 - Sepsis, unspecified organism Status: Acute Assessment and Plan: Acute (3) UTI (urinary tract infection): Qualifiers: Hematuria presence: with hematuria Urinary tract infection type: acute cystitis Qualified Code(s): N30.01 - Acute cystitis with hematuria Code(s): N39.0 - Urinary tract infection, site not specified Status: Acute Assessment and Plan: Acute (4) Hydronephrosis concurrent with and due to calculi of kidney and ureter: Code(s): N13.2 - Hydronephrosis with renal and ureteral calculous obstruction Status: Acute Assessment and Plan: Acute (5) Atrial fibrillation with rapid ventricular response: Code(s): I48.91 - Unspecified atrial fibrillation Status: Acute Assessment and Plan: Acute (6) Generalized muscle weakness: Code(s): M62.81 - Muscle weakness (generalized) Status: Acute Assessment and Plan: Acute on Chronic. (7) CKD (chronic kidney disease): Qualifiers: Chronic kidney disease stage: unspecified stage Qualified Code(s): N18.9 - Chronic kidney disease, unspecified Code(s): N18.9 - Chronic kidney disease, unspecified Status: Acute Assessment and Plan: Acute (8) Hypertension: Qualifiers: Hypertension type: primary hypertension Qualified Code(s): I10 - Ess ential (primary) hypertension Code(s): I10 - Essential (primary) hypertension Status: Acute Assessment and Plan: - Chronic. Plan Transfer to outside hospital Transfer Discharge Sum: Med Medications Active and Home Medications: Home Medications apixaban 5 mg tablet (Eliquis) 5 mg PO BID 12/05/24 [History Confirmed 12/05/24] cyclobenzaprine 10 mg tablet 10 mg PO Q8H PRN muscle spasm 12/05/24 [History Confirmed 12/05/24] diltiazem HCl 240 mg capsule,extended release 24 hr 480 mg PO DAILY 12/05/24 [History Confirmed 12/05/24] fentanyl 50 mcg/hr transdermal patch 1 patch transdermal Q72H pain 12/05/24 [History Confirmed 12/05/24] hydrocodone 10 mg-acetaminophen 325 mg tablet 1 tablet PO Q8H PRN pain 12/05/24 [History Confirmed 12/05/24] losartan 25 mg tablet 25 mg PO DAILY bp 12/05/24 [History Confirmed 12/05/24] omeprazole 20 mg capsule,delayed release 20 mg PO BID 12/05/24 [History Co nfirmed 12/05/24] ondansetron 4 mg disintegrating tablet 4 mg translingual Q6H PRN nausea and vomiting 12/05/24 [History Confirmed 12/05/24] potassium chloride 10 mEq capsule,extended release 10 meq PO BID 12/05/24 [History Confirmed 12/05/24] probenecid 500 mg tablet 500 mg PO Q12H 12/05/24 [History Confirmed 12/05/24] pyridostigmine bromide 60 mg tablet 60 mg PO TID 12/05/24 [History Confirmed 0 12/05/24] rosuvastatin 40 mg tablet 40 mg PO DAILY 12/05/24 [History Confirmed 12/05/24] spironolactone 25 mg tablet 25 mg PO Q12H 12/05/24 [History Confirmed 12/05/24] Active Medications Acetaminophen (Acetaminophen 325 Mg Tablet) 650 mg PO Q4H PRN PRN Reason: Mild Pain (1-3) or Fever Hydrocodone Bitart/Acetaminophen (Hydrocodone/Acetaminophen (*Crx) 10-325 Mg Tablet) 1 tab PO Q8H PRN PRN Reason: Pain Rated 4-6 Last Admin: 12/09/24 09:06 Dose: 1 tab Apixaban (Apixaban 5 Mg Tablet) 5 mg PO BID [facility] Last Admin: 12/09/24 09:08 Dose: 5 mg Bisacodyl (Bisacodyl 5 Mg Tablet Ec) 5 mg PO DAILY PRN PRN Reason: Constipation Cyclobenzaprine HCl (Cyclobenzaprine Hcl 10 Mg Tablet) 10 mg PO Q8H PRN PRN Reason: muscle spasm Diltiazem HCl (Diltiazem Hcl Cd 240 Mg Cap.24hr) 480 mg PO DAILY [facility] Last Admin: 12/09/24 09:08 Dose: 480 mg Fentanyl (Fentanyl (*Crx) 50 Mcg Patch) 50 mcg TRANSDERM Q72H [facility] Last Admin: 12/08/24 19:20 Dose: 50 mcg Heparin Sodium (Beef Lung) (Heparin Flush 50 Units/5 Ml Syringe) 50 units IV PUSH QAM [facility] Last Admin: 12/09/24 09:08 Dose: 50 units Heparin Sodium (Beef Lung) (Heparin Flush 50 Units/5 Ml Syringe) 50 units IV PUSH PRN PRN PRN Reason: after intermittent infusion Heparin Sodium (Beef Lung) (Heparin Flush 50 Units/5 Ml Syringe) 50 units IV PUSH PRN PRN PRN Reason: after blood draws Heparin Sodium (Porcine) (Heparin Sodium Lock Flush 500 Units/5 Ml Syringe) 500 units IV PUSH PRN PRN PRN Reason: see comments below Heparin Sodium (Porcine) (Heparin Sodium 5,000 Units/Ml Vial) 5,500 units IV PUSH PRN PRN PRN Reason: aPTT less than 55 seconds Heparin Sodium (Porcine) (Heparin Sodium 5,000 Units/Ml Vial) 2,500 units IV PUSH PRN PRN PRN Reason: aPTT 55 - 70 seconds Levofloxacin/Dextrose (Levaquin 500 Mg/D5w 100 Ml) 500 mg in 100 mls @ 100 mls/hr IVPB Q24H [facility] Heparin Sodium/Dextrose (Heparin Sodium/D5w 100 Units/Ml) 25,000 units in 250 mls @ 12 mls/hr IV CONT .[id number] [facility]; Protocol Last Admin: 12/09/24 12:20 Dose: 1,200 units/hr, 12 mls/hr Vancomycin HCl (Vancomycin 1,000 Mg/Ns 250 Ml) 1,000 mg in 250 mls @ 250 mls/hr IVPB ONCE ONE Stop: 12/09/24 14:29 Losartan Potassium (Losartan Potassium 50 Mg Tablet) 50 mg PO DAILY [facility] Last Admin: 12/09/24 09:08 Dose: 50 mg Metoprolol Tartrate (Metoprolol Tartrate 25 Mg Tablet) 25 mg PO Q12HR [facility] Last Admin: 12/09/24 09:08 Dose: 25 mg Miscellaneous Information (Nonformulary Drug (Probenecid 500 Mg Tablet) Can Patient Use From Home?) 1 each XX CLARIFY [facility] Stop: 01/04/25 00:00 Last Admin: 12/09/24 06:35 Dose: Not Given Morphine Sulfate (Morphine Sulfate (*Crx) 2 Mg/Ml Inj) 2 mg IV PUSH Q4H PRN PRN Reason: Pain Rated 7-10 Last Admin: 12/09/24 10:52 Dose: 2 mg Naloxone HCl (Naloxone Hcl 0.4 Mg/Ml Vial) 0.1 mg IV PUSH Q2M PRN PRN Reason: Opiate Reversal Non-Formulary Medication (Probenecid) 500 mg PO Q12H [facility] Stop: 01/04/25 17:14 Ondansetron HCl (Ondansetron Inj 4 Mg/2 Ml Vial) 4 mg IV PUSH Q6H PRN PRN Reason: Nausea And Vomiting Last Admin: 12/08/24 20:14 Dose: 4 mg Pantoprazole Sodium (Pantoprazole 40 Mg Tablet) 40 mg PO Q12HR [facility] Last Admin: 12/09/24 09:08 Dose: 40 mg Perflutren Lipid Microsphere (Perflutren Lipid Microspheres 1.5 Ml Vial Diluted To 10 Ml Total Volume) 0 ml IV PUSH ONCE PRN; Protocol PRN Reason: adequate visualization Stop: 12/10/24 19:56 Potassium Chloride (Potassium Chloride 10 Meq Er Tablet) 10 meq PO BID [facility] Last Admin: 12/09/24 09:07 Dose: 10 meq Pyridostigmine [place] (Pyridostigmine [place] 60 Mg Tablet) 60 mg PO TID [facility] Last Admin: 12/09/24 13:23 Dose: 60 mg Rosuvastatin Calcium (Rosuvastatin 20 Mg Tablet) 40 mg PO DAILY [facility] Last Admin: 12/09/24 09:07 Dose: 40 mg Sodium Chloride (Central Line Flush) 10 ml IV PUSH Q8HR [facility] Last Admin: 12/09/24 13:23 Dose: 10 ml Spironolactone (Spironolactone 25 Mg Tablet) 25 mg PO Q12H [facility] Last Admin: 12/09/24 05:25 Dose: 25 mg Tamsulosin HCl (Tamsulosin Hcl 0.4 Mg Capsule) 0.4 mg PO QAM [facility] Last Admin: 12/09/24 09:07 Dose: 0.4 mg Transfer Discharge Sum: Hosp Hospital Course Hospital course: Kallie Calderon is a 79 year old female who presented to the emergency room with reports of hematuria. Patient met sepsis criteria on presentation with tachycardia leukocytosis, and lactic acidosis, with this are suspected to be a UTI. She was given 2 L of fluid bolus and started empirically on ceftriaxone for her UTI with sepsis. Patient had just been discharged from another hospital where she had presented with abdominal pain and was found with intussusception, with the patient undergoing open right hemicolectomy. Patient was observed in the emergency room and had a CT abdomen and pelvis done that showed a left ureteral stone. The urologist was consulted and the patient underwent a successful cystoscopy with stent placement. Patient had blood and urine cultures done at the facility that she presented initially as her UA was positive for UTI when she presented with over there. We followed up with the facilities lab on the urine and blood culture results with the patient's blood culture growing Enterococcus faecalis while high urine culture growing Proteus mirabilis. Patient's ceftriaxone was discontinued and patient started on Levaquin for the UTI and vancomycin for the bacteremia. She had been scheduled for discharge yesterday but well ambulating with PT she was weak and home discharge was noted commended by PT. patient also went into AFib RVR during that therapy session that had to be treated. She was kept overnight and this morning patient reporting bilateral lower extremities weakness, severe pain, numbness. She was evaluated and found with no pedal pulses bilaterally including with Dopplers. The lower extremities also cool to touch and pale. 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 Patient will need to be transferred to a tertiary facility that has vascular surgery for further evaluation and treatment as this facility does not have vascular surgery on staff. Patient had episodes of AFib RVR and the computer system validation specialist at this facility saw the patient and added in 25 mg of metoprolol b.i.d. in addition to 480 mg of home dose diltiazem. She was continued on her Eliquis. She she also had some GABY possibly due to the renal calculi and volume depletion but this resolved with IV fluid hydration and p.o. fluid intake prior to discharge. She was continued on her home chronic pain medications. All her other chronic conditions remained stable and patient. Patient was medically stable for transfer with no acute distress noted or reported prior to transfer. Time Spent with Patient Time attestation: Total time spent providing and/or coordinating transfer services: Total time spent: Greater than 30 minutes Exam Narrative: General: Fair appearing, no acute distress. HEENT: Atraumatic, PERRL, EOMI, moist mucosa. NECK: Supple. Lungs: Clear bilaterally. Heart: Irregularly irregular, no murmurs. Abdomen: Soft, non-tender, non-distended, +ve BS X4 Quadrants. Extremities: Acyanotic, no edema, no pedal pulses, including with dopplers. Reporting chula. LE numbness and unable to move chula. feet. Skin: No lesions noted. [place]. LE cool and pale. Neuro: Fairly well oriented. CN II-XII grossly intact. Psych: Some distress with pain but cooperative. DS: Data Data Completed and Pending Labs on day of discharge: Labs from last 24 hours 12/09/24 12/08/24 04:13 23:48 WBC 22.5 H 23.1 H RBC 2.73 L 2.88 L Hgb 7.8 L 8.1 L Hct 24.6 L 25.9 L MCV 90.1 89.9 MCH 28.6 28.1 MCHC 31.7 L 31.3 L RDW 15.2 H 15.0 H Plt Count 233 242 MPV 10.1 10.3 Immature Gran % (Auto) 1.0 H 0.9 H Neut % (Auto) 85.5 H 85.7 H Lymph % (Auto) 5.7 L 5.6 L [place] % (Auto) 7.3 7.3 Eos % (Auto) 0.1 0.1 Baso % (Auto) 0.4 0.4 Lymph # (Auto) 1.28 1.30 [place] # (Auto) 1.7 H 1.7 H Eos # (Auto) 0.0 0.0 Baso # (Auto) 0.1 0.1 Abs Immat Gran (auto) 0.22 H 0.20 H Absolute Neuts (auto) 19.3 H 19.8 H Absolute Nucleated RBC 0.000 0.000 Nucleated RBC % 0.0 0.0 Platelet Estimate Adequate Hypochromasia 1+ Anisocytosis 1+ Schistocytes None seen Sodium 130 L 131 L Potassium 3.9 3.9 Chloride 101 102 Carbon Dioxide 25 26 Anion Gap 4 3 L BUN 11 11 Creatinine 0.63 L 0.66 L Estim Creat Clear Calc 62 60 Estimated GFR > 60 > 60 Glucose 163 H 161 H Calcium 7.4 L 7.5 L Phosphorus 3.4 Magnesium 1.1 L Troponin I 0.123 H*
--- NOTE | 2024-12-09 15:04 | WPDCNINT ---
Assessment and Plan Assessment and plan (1) Occlusion of terminal aorta: Code(s): I74.09 - Other arterial embolism and thrombosis of abdominal aorta Status: Acute Assessment and Plan: Patient today developed back pain inability to feel or move her legs and eventually lost pedal pulses in both feet and feet becoming pale CT scan of of aorta with runoff to lower extremities showed Complete occlusion of the distal infrarenal abdominal aorta which is new since 11/09/2024, extending to the proximal common iliac arteries bilaterally. There is reconstitution of the bilateral common iliac arteries just proximal to the bifurcations. Prior imaging/visualization of the mid to distal anterior tibial and peroneal arteries bilaterally, which could be due to relatively poor distal flow versus multifocal atherosclerotic disease. I suspect patient patient has likely infarcted her spinal cord leading to paralysis and loss of sensation to touch she also has thrombus in proximal common iliac arteries bilaterally leading to loss of pulses. The back pain can be explained by splenic infarct Patient was on anticoagulation with Eliquis which has been switched to heparin infusion at this time Hospitalist spoke to [facility] transfer line and then to a vascular surgeon and director of athletics at [facility] and patient was initially accepted but later we were told that they do not have any OR open hence they will not be able to take patient. I called and spoke to [facility] transfer line and requested if patient could be transferred to any other [facility] facility including [facility] or [facility]. I was told that neither of these facilities can accommodate this patient at this time. I called and spoke to [facility] transfer line where patient had her abdominal surgery early this month. I was discussing case with transfer line while I received call back from [facility] stating that they will accept the patient and they have managed to find OR staff and time for her. Meanwhile patient has been started on Levophed for blood pressure support. Patient will be transferred to tertiary hospital by air evacuation I will defer further evaluation management to the accepting physician and Hospital. (2) Atrial fibrillation with rapid ventricular response: Code(s): I48.91 - Unspecified atrial fibrillation Status: Acute Assessment and Plan: Patient is currently a atrial fibrillation but rate is controlled She is on p.o. 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 This critical care time included obtaining a history; examining the patient; pulse oximetry; ordering and review of studies; arranging urgent treatment with development of a management plan; evaluation of patient's response to treatment; frequent reassessment; and discussions with other providers. It was exclusive of separately billable procedures and treating other patients and teaching time. Please see Assessment and Plan section and the rest of the note for further information on patient assessment and treatment Camera Person Consult Note Consult date: 12/09/24 Reason for consult: Hypotension HPI: Kallie Calderon is a 79 year old female 79 y/o F with PMH of anemia, CKD, osteoarthritis, atrial fibrillation, myasthenia gravis, COPD, hypertension, and hyperlipidemia who recently had recent open right hemicolectomy secondary to colocolonic intussusception, performed at [facility] on 11/15/24 was transferred to [facility] on 12/05 from [facility] with kidney stone and hydronephrosis. Patient presented there with dysuria and hematuria. She lives in assisted living place. Workup there showed WBC 15.1, hemoglobin 8.1 (previously 9.1 on 12/04/2024), glucose 126, creatinine 0.64 and GFR 49, and lactic 5.5. And UA suggestive of UTI. Urine culture with preliminary results of Gram-negative bacilli. CT of the chest/abdomen/pelvis showed mild thickening of the transverse colon with mild edema to the mesentery adjacent to the colon near the anastomosis (may be postoperative given recent surgery) without abscess, 5 mm stone in the left ureteropelvic junction with mild left hydronephrosis, and mild free fluid in the pelvis. Patient was admitted given IV fluids, started on IV ceftriaxone and Urology was consulted. On 12/06 she had cystoscopy and left ureteral stent placement. Due to hematuria patient's anticoagulation had been stopped but was resumed on 12/09 after the procedure. Patient was doing well and getting better with plan for PT OT when this morning around 9:00 a.m. patient states that she could not feel her legs. She felt weak in her legs. On nursing evaluations patient's legs appeared pale and she later lost pulses in both feet. CT scan of aorta with lower extremity runoff was done which showed Complete occlusion of the distal infrarenal abdominal aorta which is new since 11/09/2024, extending to the proximal common iliac arteries bilaterally. There is reconstitution of the bilateral common iliac arteries just proximal to the bifurcations. Prior imaging/visualization of the mid to distal anterior tibial and peroneal arteries bilaterally, which could be due to relatively poor distal flow versus multifocal atherosclerotic disease. Small splenic infarct, new since prior exam. Small to moderate bilateral pleural effusions. Left ureteral stent. Numerous small pericardial effusion. Primary hospitalist started attempting to transfer patient to tertiary hospital for vascular surgery. Patient was started on heparin infusion I was called running 2:00 p.m. because of hypotension. Patient was getting fluid bolus. Patient confirmed the history to me stating that this morning she started having back pain which was followed by her inability to feel her legs or move her legs. She denied any chest pain shortness a breath nausea vomiting abdominal pain diarrhea headache dizziness or loss of consciousness. She denied any fever Her systolic blood pressure was low and she was getting fluid bolus I immediately transferred patient to ICU to initiate vasopressors. Review of Systems Review of Systems: All systems reviewed & are unremarkable except as noted in HPI and below (HP) [facility] Past Medical History Medical History Anemia CKD (chronic kidney disease) Vitamin B deficiency Osteoarthritis Atrial fibrillation Myasthenia gravis COPD (chronic obstructive pulmonary disease) Hypertension Hyperlipidemia Surgical History Surgical History History of breast lump/mass excision History of cholecystectomy H/O aortic valve replacement Family History Family History Other Kidney stones Malignant neoplasm of prostate Social History Social History Smoking status: Never smoker Second hand tobacco smoke exposure: Yes Alcohol intake: never Substance use: never Do You Feel Safe in your Home?: Yes Lack of Transportation: No Lack of Food: Never True Current Housing: I Have Housing Concerned About Future Housing: No Difficulty Paying Gas/Electric Bills: No Difficulty Paying for Meds: No Currently Unemployed: No Education: High School Diploma/GED Difficulty w/ Childcare or Family Care: No Spiritual care concerns: No Meds Home Medications and Allergies Home Medications ?Medication ?Instructions ?Recorded ?Confirmed ?Type apixaban 5 mg tablet (Eliquis) 5 mg PO BID 12/05/24 12/05/24 History cyclobenzaprine 10 mg tablet 10 mg PO Q8H PRN muscle spasm 12/05/24 12/05/24 History diltiazem HCl 240 mg 480 mg PO DAILY 12/05/24 12/05/24 History capsule,extended release 24 hr fentanyl 50 mcg/hr transdermal 1 patch transdermal Q72H pain 12/05/24 12/05/24 History patch hydrocodone 10 mg-acetaminophen 1 tablet PO Q8H PRN pain 12/05/24 12/05/24 History 325 mg tablet losartan 25 mg tablet 25 mg PO DAILY bp 12/05/24 12/05/24 History omeprazole 20 mg capsule,delayed 20 mg PO BID 12/05/24 12/05/24 History release ondansetron 4 mg disintegrating 4 mg translingual Q6H PRN nausea 12/05/24 12/05/24 History tablet and vomiting potassium chloride 10 mEq 10 meq PO BID 12/05/24 12/05/24 History capsule,extended release probenecid 500 mg tablet 500 mg PO Q12H 12/05/24 12/05/24 History pyridostigmine bromide 60 mg tablet 60 mg PO TID 12/05/24 12/05/24 History rosuvastatin 40 mg tablet 40 mg PO DAILY 12/05/24 12/05/24 History spironolactone 25 mg tablet 25 mg PO Q12H 12/05/24 12/05/24 History Allergies Allergy/AdvReac Type Severity Reaction Status Date / Time fish oil Allergy Unknown Verified 12/06/24 10:31 mushroom Allergy Unknown Verified 12/06/24 10:31 penicillin V Allergy Unknown Verified 12/06/24 10:31 famciclovir AdvReac Unknown Verified 12/06/24 10:31 ketorolac AdvReac Unknown Verified 12/06/24 10:31 oxybutynin AdvReac Unknown Verified 12/06/24 10:31 Sulfa (Sulfonamide AdvReac Unknown Verified 12/06/24 10:31 Antibiotics) tetracycline AdvReac Unknown Verified 12/06/24 10:31 topiramate AdvReac Unknown Verified 12/06/24 10:31 sea food Allergy Unknown Uncoded 12/06/24 10:31 Vital Signs Vital Signs - 24 hr 12/08/24 15:39 12/08/24 16:00 12/08/24 16:00 Temperature 37.7 C H Pulse Rate 86 91 Respiratory Rate 20 Blood Pressure 120/51 L Pulse Oximetry 100 Oxygen Delivery Room Air Oxygen Flow Rate 12/08/24 18:00 12/08/24 20:00 12/08/24 20:00 Temperature 36.6 C Pulse Rate 101 H 119 H Respiratory Rate 22 H Blood Pressure 145/93 H Pulse Oximetry 100 100 Oxygen Delivery Nasal Cannula Oxygen Flow Rate 2 12/08/24 20:00 12/08/24 21:52 12/08/24 22:00 Temperature Pulse Rate 74 123 H 113 H Respiratory Rate Blood Pressure Pulse Oximetry Oxygen Delivery Oxygen Flow Rate 12/08/24 22:40 12/09/24 00:00 12/09/24 00:00 Temperature 36.6 C Pulse Rate 107 H 104 H Respiratory Rate 21 H 18 Blood Pressure 112/57 L Pulse Oximetry 99 99 Oxygen Delivery Autopap CPAP Oxygen Flow Rate 12/09/24 00:00 12/09/24 02:00 12/09/24 04:00 Temperature 36.6 C Pulse Rate 80 89 75 Respiratory Rate 18 Blood Pressure 127/49 L Pulse Oximetry 97 Oxygen Delivery Oxygen Flow Rate 12/09/24 04:00 12/09/24 04:00 12/09/24 06:00 Temperature Pulse Rate 78 81 Respiratory Rate Blood Pressure Pulse Oximetry Oxygen Delivery CPAP Oxygen Flow Rate 12/09/24 08:00 12/09/24 08:00 12/09/24 09:08 Temperature Pulse Rate 156 H 101 H 121 H Respiratory Rate 24 H Blood Pressure 118/77 Pulse Oximetry 91 Oxygen Delivery Oxygen Flow Rate 12/09/24 10:00 12/09/24 11:55 12/09/24 14:20 Temperature 36.6 C 36.4 C L Pulse Rate 145 H 129 H 72 Respiratory Rate 16 18 Blood Pressure 103/43 L 60/40 L Pulse Oximetry 94 94 Oxygen Delivery Oxygen Flow Rate Exam Narrative: General: Pt is alert awake and in NAD Lungs/Chest: Trachea central Clear BS B/L, No crackles or wheezing. Cardiac: Irregular. Normal S1 S2. Systolic murmur 3/6 Circulation: Both feet are cold I could not palpate dorsalis pedis or posterior tibial in either of the feet. Both feet are pale, I was able to feel femoral pulses on both side Abdomen: Normal bowel sounds.. Soft. NT. ND. Scars from past surgical incision Extremities: Both feet are cold : Del Toro in place Neurologic: Follows commands with upper extremity PERRL, she is unable to move both of her legs or feet. She states she cannot few touch sensation on feet but she could feel the touch sensation on left leg. She does not withdraw to pain Skin: No Rash Results Labs 12/09/24 04:13 12/09/24 04:13 Labs: Impressions Chest X-Ray 12/08/24 20:56 IMPRESSION: Small left-sided pleural effusion without focal infiltrate, unchanged from prior. Chest X-Ray 12/09/24 07:16 Impression: Right-sided Mediport. Possible minimal effusions. Cardiomegaly with aortic valve replacement. 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 There is reconstitution of the bilateral common iliac arteries just proximal to the bifurcations. Prior imaging/visualization of the mid to distal anterior tibial and peroneal arteries bilaterally, which could be due to relatively poor distal flow versus multifocal atherosclerotic disease. Small splenic infarct, new since prior exam. Small to moderate bilateral pleural effusions. Left ureteral stent. Numerous small pericardial effusion. Short CBC 12/08/24 12/09/24 Range/Units 23:48 04:13 WBC 23.1 H 22.5 H (4.5-10.0) K/mm3 Hgb 8.1 L 7.8 L (12.0-15.0) g/dL Hct 25.9 L 24.6 L (37.0-47.0) % Plt Count 242 233 (150-375) k/mm3 BMP 12/08/24 12/09/24 23:48 04:13 Sodium 131 L 130 L Potassium 3.9 3.9 Chloride 102 101 Carbon Dioxide 26 25 BUN 11 11 Creatinine 0.66 L 0.63 L Glucose 161 H 163 H Calcium 7.5 L 7.4 L Cardiac Enzymes 12/08/24 Range/Units 23:48 Troponin I 0.123 H* (0.000-0.034) ng/mL Quality VTE Prophylaxis VTE prophylaxis: pharmacologic ordered Hospitalist [facility] Advance Care Plan I have confirmed that the patient's Advanced Care Plan is present, code status is documented, or surrogate decision maker is listed in patient medical record.: Yes Medication Reconciliation I have utilized all available resources to obtain, update and review the patients current medications (includes all prescriptions, OTC, herbals, cannabis, and nutritional supplements).: Yes
--- NOTE | 2024-12-09 15:11 | PC.NURSE ---
Fentanyl patch removed from right shoulder.
--- NOTE | 2024-12-09 15:16 | PC.NURSE ---
Received patient from [facility][note 3]. when patient arrived patient blood pressure 72/44. Levophed started via port. Heparin continues to be infused. Patient complaining of pain in her back and right leg. Blood pressure came up to 102/44 after levophed started at 5 mcg/min. Patient given Morphine for pain. Fentanyl patch removed and wasted with DALE [place]. Room received at [facility]. Report called by DALE Galvan to Rachael at [facility]. Per Dr. Escoto patient is to be flown to [facility]. Del Toro catheter inserted as per ordered by Dr. Escoto. Patient alert and oriented at this time and is agreeable to being flown to [facility]. Family updated and notified of transfer.
--- NOTE | 2024-12-09 15:46 | PC.NURSE ---
patient leaving floor with crew of air evac.
--- NOTE | 2024-12-09 20:30 | PC.NURSE ---
0921- Notified Charles EXPLORATION DRILLER for patient compliant of bilateral leg numbness and unable to move bilateral legs. 1013- Notified Charles EXPLORATION DRILLER that patient still complaining to numbness/unable to move bilateral legs and that RN was also unable to palpate or doppler bilateral pedal, Posterior tibial or popliteal artery. Femoral pulses were present with doppler. Charles EXPLORATION DRILLER stated he would come to bedside and assess patient. 1021- Dr. Robin called to update on patient with no answer. 1040- EXPLORATION DRILLER not present at bedside to assess patient. Care coordination called Charles CHIN, EXPLORATION DRILLER stated that I am in a patient room. I will get there when I get there, I have other patients to see. Dr. Robin called again with no answer. 1041- Dr robin overhead paged 1042- Dr. robin at bedside to assess patient with RN and Lita. No pulses present on doppler until femoral. Orders placed for Stat aorta with runoff CTA. 1053- Charles at bedside to assess patient. 1420- Tech reports Vital signs to RN with blood pressure 60/[address] Robin of low B/P. Verbal orders of 500ml bolus to be given. Dr. robin initiates transfer to ICU. 1440- Dr. blanca to bedside to assess patient. 1450- Transfered patient to ICU 11.
== END 2024-12-09 15:43 | disposition short-term general hospital (02) | DRG 853 ==
LOC: ANHICU 12-11 16:26 → ANH3MEDSUR 12-11 16:26 → ANHIMU 12-11 16:26
PROVIDERS: Nurse Practitioner Gerontology; Student in an Organized Health Care Education/Training Program; Urology; Admitting Provider Internal Medicine; Visit Provider Nurse Practitioner Adult Health
PROC: 0T778DZ Dilation of Left Ureter with Intraluminal Device, Via Natural or Artificial Opening Endoscopic (ICD-10-PCS; CPT 52352; principal; 2024-12-06 14:30)
DX: A41.9 Sepsis, unspecified organism (principal); G95.11 Acute infarction of spinal cord (embolic) (nonembolic); I48.92 Unspecified atrial flutter; I74.09 Other arterial embolism and thrombosis of abdominal aorta; N13.6 Pyonephrosis; N17.9 Acute kidney failure, unspecified; R57.9 Shock, unspecified; I12.9 Hypertensive chronic kidney disease with stage 1 through stage 4 chronic kidney disease, or unspecified chronic kidney disease; N18.9 Chronic kidney disease, unspecified; D64.9 Anemia, unspecified; M19.90 Unspecified osteoarthritis, unspecified site; I48.91 Unspecified atrial fibrillation; J44.9 Chronic obstructive pulmonary disease, unspecified; R31.9 Hematuria, unspecified; B95.2 Enterococcus as the cause of diseases classified elsewhere; B96.4 Proteus (mirabilis) (morganii) as the cause of diseases classified elsewhere; E78.5 Hyperlipidemia, unspecified; G70.00 Myasthenia gravis without (acute) exacerbation; E66.9 Obesity, unspecified; Z95.2 Presence of prosthetic heart valve; Z90.49 Acquired absence of other specified parts of digestive tract; Z79.01 Long term (current) use of anticoagulants
CPT/HCPCS: 36415; 71045; 74018; 74420; 75635; 80048; 80053; 83605; 83735; 84100; 84132; 84145; 84484; 85025; 85027; 93005; 94002; 97161; 97165; A9270; C1751; C1769; C2617; G0378; G0379; J0696; J1642; J1644; J1940; J2270; J2405; J2704; J3475; J7030; J7040; Q9967